=== PATIENT | female | born 1970 | race Caucasian/White ===

== ENCOUNTER → 2017-12-04 | Outpatient (CLI) | payer BC | LOC: HYPER 06:19 | DX: E11.621 Type 2 diabetes mellitus with foot ulcer (principal); L97.521 Non-pressure chronic ulcer of other part of left foot limited to breakdown of skin; L89.893 Pressure ulcer of other site, stage 3; E11.52 Type 2 diabetes mellitus with diabetic peripheral angiopathy with gangrene; I96 Gangrene, not elsewhere classified; E11.69 Type 2 diabetes mellitus with other specified complication; M86.8X8 Other osteomyelitis, other site; D68.51 Activated protein C resistance; F41.9 Anxiety disorder, unspecified; F32.9 Major depressive disorder, single episode, unspecified; Z79.4 Long term (current) use of insulin; Z79.84 Long term (current) use of oral hypoglycemic drugs ==

== ENCOUNTER → 2017-12-18 | Outpatient (CLI) | payer BC | LOC: HYPER 06:34 | DX: E11.621 Type 2 diabetes mellitus with foot ulcer (principal); L97.511 Non-pressure chronic ulcer of other part of right foot limited to breakdown of skin; L89.893 Pressure ulcer of other site, stage 3; E11.52 Type 2 diabetes mellitus with diabetic peripheral angiopathy with gangrene; I96 Gangrene, not elsewhere classified; E11.69 Type 2 diabetes mellitus with other specified complication; M86.8X8 Other osteomyelitis, other site; D68.51 Activated protein C resistance; F41.9 Anxiety disorder, unspecified; F32.9 Major depressive disorder, single episode, unspecified; Z79.4 Long term (current) use of insulin; Z79.84 Long term (current) use of oral hypoglycemic drugs ==

== ENCOUNTER → 2017-12-20 | Outpatient (CLI) | payer BC | LOC: HYPER 08:05 | DX: E11.621 Type 2 diabetes mellitus with foot ulcer (principal); L97.511 Non-pressure chronic ulcer of other part of right foot limited to breakdown of skin; E11.52 Type 2 diabetes mellitus with diabetic peripheral angiopathy with gangrene; I96 Gangrene, not elsewhere classified; E11.69 Type 2 diabetes mellitus with other specified complication; M86.8X8 Other osteomyelitis, other site; D68.51 Activated protein C resistance; J45.909 Unspecified asthma, uncomplicated; F41.9 Anxiety disorder, unspecified; F32.9 Major depressive disorder, single episode, unspecified; Z79.4 Long term (current) use of insulin; Z79.84 Long term (current) use of oral hypoglycemic drugs ==

== ENCOUNTER → 2017-12-23 | Outpatient (CLI) | payer BC | LOC: HYPER 06:49 | DX: E11.621 Type 2 diabetes mellitus with foot ulcer (principal); L97.511 Non-pressure chronic ulcer of other part of right foot limited to breakdown of skin; L84 Corns and callosities; E11.52 Type 2 diabetes mellitus with diabetic peripheral angiopathy with gangrene; I96 Gangrene, not elsewhere classified; E11.69 Type 2 diabetes mellitus with other specified complication; M86.8X8 Other osteomyelitis, other site; D68.51 Activated protein C resistance; J45.909 Unspecified asthma, uncomplicated; F41.9 Anxiety disorder, unspecified; F32.9 Major depressive disorder, single episode, unspecified; Z89.431 Acquired absence of right foot; Z79.4 Long term (current) use of insulin; Z79.84 Long term (current) use of oral hypoglycemic drugs ==

== ENCOUNTER → 2018-01-27 | Outpatient (CLI) | payer BC | LOC: HYPER 07:15 | DX: E11.621 Type 2 diabetes mellitus with foot ulcer (principal); L97.511 Non-pressure chronic ulcer of other part of right foot limited to breakdown of skin; L84 Corns and callosities; E11.52 Type 2 diabetes mellitus with diabetic peripheral angiopathy with gangrene; I96 Gangrene, not elsewhere classified; E11.69 Type 2 diabetes mellitus with other specified complication; M86.8X8 Other osteomyelitis, other site; D68.51 Activated protein C resistance; F41.9 Anxiety disorder, unspecified; F32.9 Major depressive disorder, single episode, unspecified; Z79.4 Long term (current) use of insulin; Z79.84 Long term (current) use of oral hypoglycemic drugs ==

== ENCOUNTER → 2018-02-13 | Outpatient (CLI) | payer BC | LOC: HYPER 07:05 | DX: E11.621 Type 2 diabetes mellitus with foot ulcer (principal); L97.511 Non-pressure chronic ulcer of other part of right foot limited to breakdown of skin; L84 Corns and callosities; E11.52 Type 2 diabetes mellitus with diabetic peripheral angiopathy with gangrene; I96 Gangrene, not elsewhere classified; E11.69 Type 2 diabetes mellitus with other specified complication; M86.8X8 Other osteomyelitis, other site; D68.51 Activated protein C resistance; J45.909 Unspecified asthma, uncomplicated; F41.9 Anxiety disorder, unspecified; F32.9 Major depressive disorder, single episode, unspecified; Z89.421 Acquired absence of other right toe(s); Z79.4 Long term (current) use of insulin; Z79.84 Long term (current) use of oral hypoglycemic drugs ==

== ENCOUNTER → 2018-02-14 | Outpatient (CLI) | payer BC | LOC: MRI 13:32 | DX: L03.115 Cellulitis of right lower limb (principal); M25.474 Effusion, right foot; L02.611 Cutaneous abscess of right foot; R60.0 Localized edema ==

== ENCOUNTER → 2018-03-06 | Outpatient (CLI) | payer BC ==
--- NOTE | 2018-03-07 10:28 | HC ---
[facility] [place] [address] CONSULTATION Name: DARIO PRO Room #: [facility]#: [id number] Admission: 03/06/18 Attend Phys: Ashish Flores MD Discharge: Date of : 66 Report #: [id number] THIS REPORT FOR: //name// CC: Madi Flores DATE OF SERVICE: 03/06/2018 INFECTIOUS DISEASE CONSULTATION ATTENDING PHYSICIANS: Madi Murray MD and Ashish Flores MD. REASON FOR CONSULTATION: Right diabetic foot ulcer with underlying osteomyelitis. HISTORY OF PRESENT ILLNESS: The patient is a 47-year-old white woman with diabetes mellitus for many years with its multiple complications [facility] Dr. Ashish Flores request with ulceration on the right foot of longstanding. The patient is scheduled to have surgical intervention by Dr. Tim Retana this coming Saturday at [facility]. The extent and type of surgery is unclear to the patient and her mother. DRUG ALLERGIES: THERE APPEARS TO BE A HISTORY OF ALLERGY OR INTOLERANCE TO VANCOMYCIN. MEDICATIONS: The patient is currently on treatment with doxycycline 100 mg by mouth twice daily, Renvela 800 mg p.o. t.i.d., Zoloft 50 mg p.o. daily, Actos 15 mg p.o. daily, albuterol inhalation treatments as needed, torsemide p.r.n. PAST MEDICAL HISTORY: Diabetes mellitus with its multiple complications. She had previous surgical interventions to the right foot that ended up requiring a transmetatarsal amputation of the foot and is up lately, the patient is found to have ulceration on the right fifth remainder metatarsal area. MRI of the right foot revealed evidence of osteomyelitis of the residual fifth metatarsal and also some edema of the fourth metatarsal. Soft tissue gas is present as well as a deep ulceration. Culture of the right foot ulcer on 02/13/2018 has revealed presence of Staphylococcus aureus sensitive to vancomycin, Bactrim, tetracycline and on account of these, the patient is on treatment with doxycycline 100 mg p.o. b.i.d. The patient had previous cholecystectomy, right knee surgery, obesity. Her latest hemoglobin A1c is 7.2%. Her last hemoglobin was around 10. Her latest creatinine was 4 and the patient is to be evaluated by vascular surgeon for AV graft placement. The patient is on the kidney transplantation list. SOCIAL HISTORY: See H and P, old records. [address] [address] CONSULTATION Name: DARIO PRO Room #: REG [facility]ade[facility]#: [id number] Admission: 03/06/18 Attend Phys: Ashish Flores MD Discharge: Date of : 66 Report #: [id number] FAMILY HISTORY: See H and P, old records. REVIEW OF SYSTEMS: The patient is said not to be doing very well. She is scheduled to have a stress test at [facility] tomorrow and surgery this coming Saturday. The patient's mother and the patient herself were both advised a clear list of her current medication and possibly drug allergies must be kept at all times in the patient's purse and the patient's mother's possession to be sure with all physicians involved in her care. PHYSICAL EXAMINATION: GENERAL: Chronically ill-appearing, overweight woman. VITAL SIGNS: BP 119/77, temperature 96.8, pulse 93, respirations 18. HEENT: Pupils reactive. Mouth, no thrush. NECK: Supple. BREASTS: Deferred. LUNGS: Clear to auscultation. HEART: S1, S2. No gallop, murmur or rub. ABDOMEN: Obese, soft, no masses or megaly. EXTREMITIES: Status post transmetatarsal amputation of the right foot with large ulceration over the lateral aspect of the transmetatarsal amputated foot. Probing of the wound with gloved fingers failed to reveal exposed bone, but MRI has revealed evidence of osteomyelitis of the remainder right fifth metatarsal. RADIOLOGY EVALUATION: MRI of the right foot reveals transmetatarsal amputation. Ulceration at the lateral margin amputated site, marrow edema and infiltration consistent with osteomyelitis of the remainder fifth metatarsal, gas in the soft tissues. ASSESSMENT: 1. Chronic ulceration, right transmetatarsal foot amputation lateral aspect with underlying osteomyelitis fifth metatarsal. 2. Staphylococcus aureus, oxacillin resistant, right foot ulcer (02/13/2018). 3. Onychomycosis, left foot. 4. Diabetes mellitus, uncontrolled. 5. Chronic kidney disease. 6. Question of VANCOMYCIN ALLERGY. 7. Status post cholecystectomy and tonsillectomy. SUGGESTIONS: Recommend proceed with surgical intervention and possible excision and debridement of fifth metatarsal and if at all possible primary closure. I suspect with history of question vancomycin-induced respiratory problems, cardiac arrest, may consider using Zyvox during surgical intervention along with an anaerobic type antibiotic possibly clindamycin 600 mg IV every 8 hours perioperatively. Depending on surgical findings may recommend oral antibiotics or if so indicated parenteral antibiotics. We will try to make that determination once surgical intervention undertaken. We will obtain cultures of [address] [address] CONSULTATION Name: DARIO PRO Room #: REG KENNA Hanson#: [id number] Admission: 03/06/18 Attend Phys: Ashish Flores MD Discharge: Date of : 66 Report #: [id number] surgical specimen as well. Dr. Ashish Flores and Dr. Murray, thank you for requesting my suggestions in the care of your patient. <ELECTRONICALLY SIGNED> By: Warren Cortes MD 03/07/18 1028 1131 1214 Warren Cortes MD /nt
== END ==
LOC: HYPER 02-19 06:56
DX: E11.621 Type 2 diabetes mellitus with foot ulcer (principal); L97.511 Non-pressure chronic ulcer of other part of right foot limited to breakdown of skin; E11.52 Type 2 diabetes mellitus with diabetic peripheral angiopathy with gangrene; E11.69 Type 2 diabetes mellitus with other specified complication; M86.8X7 Other osteomyelitis, ankle and foot; L84 Corns and callosities; F41.9 Anxiety disorder, unspecified; F32.9 Major depressive disorder, single episode, unspecified; Z79.84 Long term (current) use of oral hypoglycemic drugs; Z79.4 Long term (current) use of insulin

== ENCOUNTER → 2018-03-27 | Outpatient (CLI) | payer BC | LOC: HYPER 07:23 | DX: E11.621 Type 2 diabetes mellitus with foot ulcer (principal); L97.511 Non-pressure chronic ulcer of other part of right foot limited to breakdown of skin; L84 Corns and callosities; E11.52 Type 2 diabetes mellitus with diabetic peripheral angiopathy with gangrene; I96 Gangrene, not elsewhere classified; E11.69 Type 2 diabetes mellitus with other specified complication; M86.8X8 Other osteomyelitis, other site; D68.51 Activated protein C resistance; F41.9 Anxiety disorder, unspecified; F32.9 Major depressive disorder, single episode, unspecified; Z89.431 Acquired absence of right foot; Z79.4 Long term (current) use of insulin; Z79.84 Long term (current) use of oral hypoglycemic drugs ==

== ENCOUNTER → 2018-04-17 | Outpatient (CLI) | payer BC | LOC: HYPER 07:09 | DX: T81.31XD Disruption of external operation (surgical) wound, not elsewhere classified, subsequent encounter (principal); E11.621 Type 2 diabetes mellitus with foot ulcer; L97.511 Non-pressure chronic ulcer of other part of right foot limited to breakdown of skin; L84 Corns and callosities; E11.52 Type 2 diabetes mellitus with diabetic peripheral angiopathy with gangrene; I96 Gangrene, not elsewhere classified; E11.69 Type 2 diabetes mellitus with other specified complication; M86.8X8 Other osteomyelitis, other site; D68.51 Activated protein C resistance; F41.9 Anxiety disorder, unspecified; F32.9 Major depressive disorder, single episode, unspecified; Z79.4 Long term (current) use of insulin; Z79.84 Long term (current) use of oral hypoglycemic drugs; Y83.8 Other surgical procedures as the cause of abnormal reaction of the patient, or of later complication, without mention of misadventure at the time of the procedure ==

== ENCOUNTER → 2018-04-23 | Outpatient (CLI) | payer BC | LOC: HYPER 11:18 | DX: T81.31XD Disruption of external operation (surgical) wound, not elsewhere classified, subsequent encounter (principal); E11.621 Type 2 diabetes mellitus with foot ulcer; L97.511 Non-pressure chronic ulcer of other part of right foot limited to breakdown of skin; E11.52 Type 2 diabetes mellitus with diabetic peripheral angiopathy with gangrene; I96 Gangrene, not elsewhere classified; E11.69 Type 2 diabetes mellitus with other specified complication; M86.8X8 Other osteomyelitis, other site; D68.51 Activated protein C resistance; F41.9 Anxiety disorder, unspecified; F32.9 Major depressive disorder, single episode, unspecified; Z79.4 Long term (current) use of insulin; Z79.84 Long term (current) use of oral hypoglycemic drugs; Y83.8 Other surgical procedures as the cause of abnormal reaction of the patient, or of later complication, without mention of misadventure at the time of the procedure ==

== ENCOUNTER → 2018-05-05 | Outpatient (CLI) | payer BC | LOC: HYPER 06:47 | DX: T81.31XD Disruption of external operation (surgical) wound, not elsewhere classified, subsequent encounter (principal); E11.621 Type 2 diabetes mellitus with foot ulcer; L97.412 Non-pressure chronic ulcer of right heel and midfoot with fat layer exposed; L84 Corns and callosities; E11.52 Type 2 diabetes mellitus with diabetic peripheral angiopathy with gangrene; I96 Gangrene, not elsewhere classified; E11.69 Type 2 diabetes mellitus with other specified complication; M86.8X8 Other osteomyelitis, other site; D68.51 Activated protein C resistance; J45.909 Unspecified asthma, uncomplicated; F41.9 Anxiety disorder, unspecified; F32.9 Major depressive disorder, single episode, unspecified; Z79.4 Long term (current) use of insulin; Z79.84 Long term (current) use of oral hypoglycemic drugs; Y83.8 Other surgical procedures as the cause of abnormal reaction of the patient, or of later complication, without mention of misadventure at the time of the procedure ==

== ENCOUNTER → 2018-05-06 | Outpatient (CLI) | payer BC | LOC: HYPER 07:13 | DX: T81.31XD Disruption of external operation (surgical) wound, not elsewhere classified, subsequent encounter (principal); E11.621 Type 2 diabetes mellitus with foot ulcer; L97.412 Non-pressure chronic ulcer of right heel and midfoot with fat layer exposed; E11.69 Type 2 diabetes mellitus with other specified complication; M86.8X8 Other osteomyelitis, other site; E11.52 Type 2 diabetes mellitus with diabetic peripheral angiopathy with gangrene; I96 Gangrene, not elsewhere classified; D68.51 Activated protein C resistance; F41.9 Anxiety disorder, unspecified; F32.9 Major depressive disorder, single episode, unspecified; Z79.4 Long term (current) use of insulin; Z79.84 Long term (current) use of oral hypoglycemic drugs; Y83.8 Other surgical procedures as the cause of abnormal reaction of the patient, or of later complication, without mention of misadventure at the time of the procedure ==

== ENCOUNTER → 2018-05-07 | Outpatient (CLI) | payer BC | LOC: HYPER 06:50 | DX: T81.31XD Disruption of external operation (surgical) wound, not elsewhere classified, subsequent encounter (principal); E11.621 Type 2 diabetes mellitus with foot ulcer; L97.412 Non-pressure chronic ulcer of right heel and midfoot with fat layer exposed; E11.52 Type 2 diabetes mellitus with diabetic peripheral angiopathy with gangrene; I96 Gangrene, not elsewhere classified; E11.69 Type 2 diabetes mellitus with other specified complication; M86.8X8 Other osteomyelitis, other site; D68.51 Activated protein C resistance; F41.9 Anxiety disorder, unspecified; F32.9 Major depressive disorder, single episode, unspecified; Z79.4 Long term (current) use of insulin; Z79.84 Long term (current) use of oral hypoglycemic drugs; Y83.8 Other surgical procedures as the cause of abnormal reaction of the patient, or of later complication, without mention of misadventure at the time of the procedure ==

== ENCOUNTER → 2018-05-08 | Outpatient (CLI) | payer BC | LOC: HYPER 06:56 | DX: T81.31XD Disruption of external operation (surgical) wound, not elsewhere classified, subsequent encounter (principal); E11.621 Type 2 diabetes mellitus with foot ulcer; L97.412 Non-pressure chronic ulcer of right heel and midfoot with fat layer exposed; E11.52 Type 2 diabetes mellitus with diabetic peripheral angiopathy with gangrene; I96 Gangrene, not elsewhere classified; E11.69 Type 2 diabetes mellitus with other specified complication; M86.8X8 Other osteomyelitis, other site; D68.51 Activated protein C resistance; F41.9 Anxiety disorder, unspecified; F32.9 Major depressive disorder, single episode, unspecified; Z79.4 Long term (current) use of insulin; Z79.84 Long term (current) use of oral hypoglycemic drugs; Y83.8 Other surgical procedures as the cause of abnormal reaction of the patient, or of later complication, without mention of misadventure at the time of the procedure ==

== ENCOUNTER → 2018-05-09 | Outpatient (CLI) | payer BC | LOC: HYPER 08:17 | DX: T81.31XD Disruption of external operation (surgical) wound, not elsewhere classified, subsequent encounter (principal); E11.621 Type 2 diabetes mellitus with foot ulcer; L97.412 Non-pressure chronic ulcer of right heel and midfoot with fat layer exposed; E11.52 Type 2 diabetes mellitus with diabetic peripheral angiopathy with gangrene; I96 Gangrene, not elsewhere classified; E11.69 Type 2 diabetes mellitus with other specified complication; M86.8X8 Other osteomyelitis, other site; D68.51 Activated protein C resistance; F41.9 Anxiety disorder, unspecified; F32.9 Major depressive disorder, single episode, unspecified; Z79.4 Long term (current) use of insulin; Z79.84 Long term (current) use of oral hypoglycemic drugs; Y83.8 Other surgical procedures as the cause of abnormal reaction of the patient, or of later complication, without mention of misadventure at the time of the procedure ==

== ENCOUNTER → 2018-05-12 | Outpatient (CLI) | payer BC | LOC: HYPER 06:35 | DX: T81.31XD Disruption of external operation (surgical) wound, not elsewhere classified, subsequent encounter (principal); E11.621 Type 2 diabetes mellitus with foot ulcer; L97.412 Non-pressure chronic ulcer of right heel and midfoot with fat layer exposed; E11.52 Type 2 diabetes mellitus with diabetic peripheral angiopathy with gangrene; I96 Gangrene, not elsewhere classified; E11.69 Type 2 diabetes mellitus with other specified complication; M86.8X8 Other osteomyelitis, other site; D68.51 Activated protein C resistance; F41.9 Anxiety disorder, unspecified; F32.9 Major depressive disorder, single episode, unspecified; Z79.4 Long term (current) use of insulin; Z79.84 Long term (current) use of oral hypoglycemic drugs; Y83.8 Other surgical procedures as the cause of abnormal reaction of the patient, or of later complication, without mention of misadventure at the time of the procedure ==

== ENCOUNTER → 2018-05-13 | Outpatient (CLI) | payer BC | LOC: HYPER 06:41 | DX: T81.31XD Disruption of external operation (surgical) wound, not elsewhere classified, subsequent encounter (principal); E11.621 Type 2 diabetes mellitus with foot ulcer; L97.412 Non-pressure chronic ulcer of right heel and midfoot with fat layer exposed; E11.52 Type 2 diabetes mellitus with diabetic peripheral angiopathy with gangrene; I96 Gangrene, not elsewhere classified; E11.69 Type 2 diabetes mellitus with other specified complication; M86.8X8 Other osteomyelitis, other site; D68.51 Activated protein C resistance; F41.9 Anxiety disorder, unspecified; F32.9 Major depressive disorder, single episode, unspecified; Z79.4 Long term (current) use of insulin; Z79.84 Long term (current) use of oral hypoglycemic drugs; Y83.8 Other surgical procedures as the cause of abnormal reaction of the patient, or of later complication, without mention of misadventure at the time of the procedure ==

== ENCOUNTER → 2018-05-14 | Outpatient (CLI) | payer BC | LOC: HYPER 06:35 | DX: T81.31XD Disruption of external operation (surgical) wound, not elsewhere classified, subsequent encounter (principal); E11.621 Type 2 diabetes mellitus with foot ulcer; L97.412 Non-pressure chronic ulcer of right heel and midfoot with fat layer exposed; E11.52 Type 2 diabetes mellitus with diabetic peripheral angiopathy with gangrene; I96 Gangrene, not elsewhere classified; E11.69 Type 2 diabetes mellitus with other specified complication; M86.8X8 Other osteomyelitis, other site; D68.51 Activated protein C resistance; F41.9 Anxiety disorder, unspecified; F32.9 Major depressive disorder, single episode, unspecified; Z79.4 Long term (current) use of insulin; Z79.84 Long term (current) use of oral hypoglycemic drugs; Y83.8 Other surgical procedures as the cause of abnormal reaction of the patient, or of later complication, without mention of misadventure at the time of the procedure ==

== ENCOUNTER → 2018-05-15 | Outpatient (CLI) | payer BC | LOC: HYPER 06:56 | DX: T81.31XD Disruption of external operation (surgical) wound, not elsewhere classified, subsequent encounter (principal); E11.621 Type 2 diabetes mellitus with foot ulcer; L97.412 Non-pressure chronic ulcer of right heel and midfoot with fat layer exposed; E11.52 Type 2 diabetes mellitus with diabetic peripheral angiopathy with gangrene; I96 Gangrene, not elsewhere classified; E11.69 Type 2 diabetes mellitus with other specified complication; M86.8X8 Other osteomyelitis, other site; D68.51 Activated protein C resistance; F41.9 Anxiety disorder, unspecified; F32.9 Major depressive disorder, single episode, unspecified; Z79.4 Long term (current) use of insulin; Z79.84 Long term (current) use of oral hypoglycemic drugs; Y83.8 Other surgical procedures as the cause of abnormal reaction of the patient, or of later complication, without mention of misadventure at the time of the procedure ==

== ENCOUNTER → 2018-05-16 | Outpatient (CLI) | payer BC | LOC: HYPER 07:51 | DX: T81.31XD Disruption of external operation (surgical) wound, not elsewhere classified, subsequent encounter (principal); E11.621 Type 2 diabetes mellitus with foot ulcer; L97.412 Non-pressure chronic ulcer of right heel and midfoot with fat layer exposed; E11.52 Type 2 diabetes mellitus with diabetic peripheral angiopathy with gangrene; I96 Gangrene, not elsewhere classified; E11.69 Type 2 diabetes mellitus with other specified complication; M86.8X8 Other osteomyelitis, other site; D68.51 Activated protein C resistance; F41.9 Anxiety disorder, unspecified; F32.9 Major depressive disorder, single episode, unspecified; Z79.4 Long term (current) use of insulin; Z79.84 Long term (current) use of oral hypoglycemic drugs; Y83.8 Other surgical procedures as the cause of abnormal reaction of the patient, or of later complication, without mention of misadventure at the time of the procedure ==

== ENCOUNTER → 2018-05-19 | Outpatient (CLI) | payer BC | LOC: HYPER 07:05 | DX: T81.31XD Disruption of external operation (surgical) wound, not elsewhere classified, subsequent encounter (principal); E11.621 Type 2 diabetes mellitus with foot ulcer; L97.412 Non-pressure chronic ulcer of right heel and midfoot with fat layer exposed; E11.52 Type 2 diabetes mellitus with diabetic peripheral angiopathy with gangrene; I96 Gangrene, not elsewhere classified; E11.69 Type 2 diabetes mellitus with other specified complication; M86.8X8 Other osteomyelitis, other site; D68.51 Activated protein C resistance; F41.9 Anxiety disorder, unspecified; F32.9 Major depressive disorder, single episode, unspecified; Z79.4 Long term (current) use of insulin; Z79.84 Long term (current) use of oral hypoglycemic drugs; Y83.8 Other surgical procedures as the cause of abnormal reaction of the patient, or of later complication, without mention of misadventure at the time of the procedure ==

== ENCOUNTER → 2018-05-20 | Outpatient (CLI) | payer BC | LOC: HYPER 07:13 | DX: T81.31XD Disruption of external operation (surgical) wound, not elsewhere classified, subsequent encounter (principal); E11.621 Type 2 diabetes mellitus with foot ulcer; L97.412 Non-pressure chronic ulcer of right heel and midfoot with fat layer exposed; E11.52 Type 2 diabetes mellitus with diabetic peripheral angiopathy with gangrene; I96 Gangrene, not elsewhere classified; E11.69 Type 2 diabetes mellitus with other specified complication; M86.8X8 Other osteomyelitis, other site; D68.51 Activated protein C resistance; F41.9 Anxiety disorder, unspecified; F32.9 Major depressive disorder, single episode, unspecified; Z79.4 Long term (current) use of insulin; Z79.84 Long term (current) use of oral hypoglycemic drugs; Y83.8 Other surgical procedures as the cause of abnormal reaction of the patient, or of later complication, without mention of misadventure at the time of the procedure ==

== ENCOUNTER → 2018-05-21 | Outpatient (CLI) | payer BC | LOC: HYPER 06:51 | DX: T81.31XD Disruption of external operation (surgical) wound, not elsewhere classified, subsequent encounter (principal); E11.621 Type 2 diabetes mellitus with foot ulcer; L97.412 Non-pressure chronic ulcer of right heel and midfoot with fat layer exposed; E11.52 Type 2 diabetes mellitus with diabetic peripheral angiopathy with gangrene; I96 Gangrene, not elsewhere classified; E11.69 Type 2 diabetes mellitus with other specified complication; M86.8X8 Other osteomyelitis, other site; D68.51 Activated protein C resistance; F41.9 Anxiety disorder, unspecified; F32.9 Major depressive disorder, single episode, unspecified; Z79.4 Long term (current) use of insulin; Z79.84 Long term (current) use of oral hypoglycemic drugs; Y83.8 Other surgical procedures as the cause of abnormal reaction of the patient, or of later complication, without mention of misadventure at the time of the procedure ==

== ENCOUNTER → 2018-05-22 | Outpatient (CLI) | payer BC | LOC: HYPER 06:47 | DX: T81.31XD Disruption of external operation (surgical) wound, not elsewhere classified, subsequent encounter (principal); E11.621 Type 2 diabetes mellitus with foot ulcer; L97.412 Non-pressure chronic ulcer of right heel and midfoot with fat layer exposed; E11.52 Type 2 diabetes mellitus with diabetic peripheral angiopathy with gangrene; I96 Gangrene, not elsewhere classified; E11.69 Type 2 diabetes mellitus with other specified complication; M86.8X8 Other osteomyelitis, other site; D68.51 Activated protein C resistance; F41.9 Anxiety disorder, unspecified; F32.9 Major depressive disorder, single episode, unspecified; Z79.4 Long term (current) use of insulin; Z79.84 Long term (current) use of oral hypoglycemic drugs; Y83.8 Other surgical procedures as the cause of abnormal reaction of the patient, or of later complication, without mention of misadventure at the time of the procedure ==

== ENCOUNTER → 2018-05-23 | Outpatient (CLI) | payer BC | LOC: HYPER 08:10 | DX: T81.31XD Disruption of external operation (surgical) wound, not elsewhere classified, subsequent encounter (principal); E11.621 Type 2 diabetes mellitus with foot ulcer; L97.412 Non-pressure chronic ulcer of right heel and midfoot with fat layer exposed; E11.52 Type 2 diabetes mellitus with diabetic peripheral angiopathy with gangrene; I96 Gangrene, not elsewhere classified; E11.69 Type 2 diabetes mellitus with other specified complication; M86.8X8 Other osteomyelitis, other site; D68.51 Activated protein C resistance; F41.9 Anxiety disorder, unspecified; F32.9 Major depressive disorder, single episode, unspecified; Z79.4 Long term (current) use of insulin; Z79.84 Long term (current) use of oral hypoglycemic drugs; Y83.8 Other surgical procedures as the cause of abnormal reaction of the patient, or of later complication, without mention of misadventure at the time of the procedure ==

== ENCOUNTER → 2018-05-26 | Outpatient (CLI) | payer BC | LOC: HYPER 06:46 | DX: T81.31XD Disruption of external operation (surgical) wound, not elsewhere classified, subsequent encounter (principal); E11.621 Type 2 diabetes mellitus with foot ulcer; L97.412 Non-pressure chronic ulcer of right heel and midfoot with fat layer exposed; E11.52 Type 2 diabetes mellitus with diabetic peripheral angiopathy with gangrene; I96 Gangrene, not elsewhere classified; E11.69 Type 2 diabetes mellitus with other specified complication; M86.8X8 Other osteomyelitis, other site; D68.51 Activated protein C resistance; F41.9 Anxiety disorder, unspecified; F32.9 Major depressive disorder, single episode, unspecified; Z79.4 Long term (current) use of insulin; Z79.84 Long term (current) use of oral hypoglycemic drugs; Y83.8 Other surgical procedures as the cause of abnormal reaction of the patient, or of later complication, without mention of misadventure at the time of the procedure ==

== ENCOUNTER → 2018-05-27 | Outpatient (CLI) | payer BC | LOC: HYPER 07:47 | DX: T81.31XD Disruption of external operation (surgical) wound, not elsewhere classified, subsequent encounter (principal); E11.621 Type 2 diabetes mellitus with foot ulcer; L97.412 Non-pressure chronic ulcer of right heel and midfoot with fat layer exposed; E11.52 Type 2 diabetes mellitus with diabetic peripheral angiopathy with gangrene; I96 Gangrene, not elsewhere classified; E11.69 Type 2 diabetes mellitus with other specified complication; M86.8X8 Other osteomyelitis, other site; D68.51 Activated protein C resistance; F41.9 Anxiety disorder, unspecified; F32.9 Major depressive disorder, single episode, unspecified; Z79.4 Long term (current) use of insulin; Z79.84 Long term (current) use of oral hypoglycemic drugs; Y83.8 Other surgical procedures as the cause of abnormal reaction of the patient, or of later complication, without mention of misadventure at the time of the procedure ==

== ENCOUNTER → 2018-05-28 | Outpatient (CLI) | payer BC | LOC: HYPER 06:39 | DX: T81.31XD Disruption of external operation (surgical) wound, not elsewhere classified, subsequent encounter (principal); E11.621 Type 2 diabetes mellitus with foot ulcer; L97.412 Non-pressure chronic ulcer of right heel and midfoot with fat layer exposed; E11.52 Type 2 diabetes mellitus with diabetic peripheral angiopathy with gangrene; I96 Gangrene, not elsewhere classified; E11.69 Type 2 diabetes mellitus with other specified complication; M86.8X8 Other osteomyelitis, other site; D68.51 Activated protein C resistance; F41.9 Anxiety disorder, unspecified; F32.9 Major depressive disorder, single episode, unspecified; Z79.4 Long term (current) use of insulin; Z79.84 Long term (current) use of oral hypoglycemic drugs; Y83.8 Other surgical procedures as the cause of abnormal reaction of the patient, or of later complication, without mention of misadventure at the time of the procedure ==

== ENCOUNTER → 2018-05-29 | Outpatient (CLI) | payer BC | LOC: HYPER 07:01 | DX: T81.31XD Disruption of external operation (surgical) wound, not elsewhere classified, subsequent encounter (principal); E11.621 Type 2 diabetes mellitus with foot ulcer; L97.412 Non-pressure chronic ulcer of right heel and midfoot with fat layer exposed; E11.52 Type 2 diabetes mellitus with diabetic peripheral angiopathy with gangrene; I96 Gangrene, not elsewhere classified; E11.69 Type 2 diabetes mellitus with other specified complication; M86.8X8 Other osteomyelitis, other site; D68.51 Activated protein C resistance; F41.9 Anxiety disorder, unspecified; F32.9 Major depressive disorder, single episode, unspecified; Z79.4 Long term (current) use of insulin; Z79.84 Long term (current) use of oral hypoglycemic drugs; Y83.8 Other surgical procedures as the cause of abnormal reaction of the patient, or of later complication, without mention of misadventure at the time of the procedure ==

== ENCOUNTER → 2018-06-02 | Outpatient (CLI) | payer BC | LOC: HYPER 06:52 | DX: T81.31XD Disruption of external operation (surgical) wound, not elsewhere classified, subsequent encounter (principal); E11.621 Type 2 diabetes mellitus with foot ulcer; L97.412 Non-pressure chronic ulcer of right heel and midfoot with fat layer exposed; E11.52 Type 2 diabetes mellitus with diabetic peripheral angiopathy with gangrene; I96 Gangrene, not elsewhere classified; E11.69 Type 2 diabetes mellitus with other specified complication; M86.8X8 Other osteomyelitis, other site; D68.51 Activated protein C resistance; F41.9 Anxiety disorder, unspecified; F32.9 Major depressive disorder, single episode, unspecified; Z79.4 Long term (current) use of insulin; Z79.84 Long term (current) use of oral hypoglycemic drugs; Y83.8 Other surgical procedures as the cause of abnormal reaction of the patient, or of later complication, without mention of misadventure at the time of the procedure ==

== ENCOUNTER → 2018-06-04 | Outpatient (CLI) | payer BC | LOC: HYPER 06-03 07:20 | DX: T81.31XD Disruption of external operation (surgical) wound, not elsewhere classified, subsequent encounter (principal); E11.621 Type 2 diabetes mellitus with foot ulcer; L97.412 Non-pressure chronic ulcer of right heel and midfoot with fat layer exposed; E11.52 Type 2 diabetes mellitus with diabetic peripheral angiopathy with gangrene; I96 Gangrene, not elsewhere classified; E11.69 Type 2 diabetes mellitus with other specified complication; M86.8X8 Other osteomyelitis, other site; D68.51 Activated protein C resistance; F41.9 Anxiety disorder, unspecified; F32.9 Major depressive disorder, single episode, unspecified; Z79.4 Long term (current) use of insulin; Z79.84 Long term (current) use of oral hypoglycemic drugs; Y83.8 Other surgical procedures as the cause of abnormal reaction of the patient, or of later complication, without mention of misadventure at the time of the procedure ==

== ENCOUNTER → 2018-06-05 | Outpatient (CLI) | payer BC | LOC: HYPER 06:35 | DX: T81.31XD Disruption of external operation (surgical) wound, not elsewhere classified, subsequent encounter (principal); E11.621 Type 2 diabetes mellitus with foot ulcer; L97.412 Non-pressure chronic ulcer of right heel and midfoot with fat layer exposed; E11.52 Type 2 diabetes mellitus with diabetic peripheral angiopathy with gangrene; I96 Gangrene, not elsewhere classified; E11.69 Type 2 diabetes mellitus with other specified complication; M86.8X8 Other osteomyelitis, other site; D68.51 Activated protein C resistance; F32.9 Major depressive disorder, single episode, unspecified; F41.9 Anxiety disorder, unspecified; Z79.4 Long term (current) use of insulin; Z79.84 Long term (current) use of oral hypoglycemic drugs; Y83.8 Other surgical procedures as the cause of abnormal reaction of the patient, or of later complication, without mention of misadventure at the time of the procedure ==

== ENCOUNTER → 2018-06-09 | Outpatient (CLI) | payer BC | LOC: HYPER 06:46 | DX: T81.31XD Disruption of external operation (surgical) wound, not elsewhere classified, subsequent encounter (principal); E11.621 Type 2 diabetes mellitus with foot ulcer; L97.412 Non-pressure chronic ulcer of right heel and midfoot with fat layer exposed; E11.69 Type 2 diabetes mellitus with other specified complication; M86.8X8 Other osteomyelitis, other site; F41.9 Anxiety disorder, unspecified; F32.9 Major depressive disorder, single episode, unspecified; Z79.4 Long term (current) use of insulin; Z79.84 Long term (current) use of oral hypoglycemic drugs; Y83.8 Other surgical procedures as the cause of abnormal reaction of the patient, or of later complication, without mention of misadventure at the time of the procedure ==

== ENCOUNTER → 2018-06-10 | Outpatient (CLI) | payer BC | LOC: HYPER 06:55 | DX: T81.31XD Disruption of external operation (surgical) wound, not elsewhere classified, subsequent encounter (principal); E11.621 Type 2 diabetes mellitus with foot ulcer; L97.412 Non-pressure chronic ulcer of right heel and midfoot with fat layer exposed; E11.52 Type 2 diabetes mellitus with diabetic peripheral angiopathy with gangrene; I96 Gangrene, not elsewhere classified; E11.69 Type 2 diabetes mellitus with other specified complication; M86.8X8 Other osteomyelitis, other site; F41.9 Anxiety disorder, unspecified; F32.9 Major depressive disorder, single episode, unspecified; Z79.4 Long term (current) use of insulin; Z79.84 Long term (current) use of oral hypoglycemic drugs; Y83.8 Other surgical procedures as the cause of abnormal reaction of the patient, or of later complication, without mention of misadventure at the time of the procedure ==

== ENCOUNTER → 2018-06-11 | Outpatient (CLI) | payer BC | LOC: HYPER 06:56 | DX: T81.31XD Disruption of external operation (surgical) wound, not elsewhere classified, subsequent encounter (principal); E11.621 Type 2 diabetes mellitus with foot ulcer; L97.412 Non-pressure chronic ulcer of right heel and midfoot with fat layer exposed; E11.52 Type 2 diabetes mellitus with diabetic peripheral angiopathy with gangrene; I96 Gangrene, not elsewhere classified; E11.69 Type 2 diabetes mellitus with other specified complication; M86.8X8 Other osteomyelitis, other site; D68.51 Activated protein C resistance; F41.9 Anxiety disorder, unspecified; F32.9 Major depressive disorder, single episode, unspecified; Z79.4 Long term (current) use of insulin; Z79.84 Long term (current) use of oral hypoglycemic drugs; Y83.8 Other surgical procedures as the cause of abnormal reaction of the patient, or of later complication, without mention of misadventure at the time of the procedure ==

== ENCOUNTER → 2018-06-12 | Outpatient (CLI) | payer BC | LOC: HYPER 06:46 | DX: T81.31XD Disruption of external operation (surgical) wound, not elsewhere classified, subsequent encounter (principal); E11.621 Type 2 diabetes mellitus with foot ulcer; L97.412 Non-pressure chronic ulcer of right heel and midfoot with fat layer exposed; E11.52 Type 2 diabetes mellitus with diabetic peripheral angiopathy with gangrene; I96 Gangrene, not elsewhere classified; E11.69 Type 2 diabetes mellitus with other specified complication; M86.8X8 Other osteomyelitis, other site; D68.51 Activated protein C resistance; F41.9 Anxiety disorder, unspecified; F32.9 Major depressive disorder, single episode, unspecified; Z79.4 Long term (current) use of insulin; Z79.84 Long term (current) use of oral hypoglycemic drugs; Y83.8 Other surgical procedures as the cause of abnormal reaction of the patient, or of later complication, without mention of misadventure at the time of the procedure ==

== ENCOUNTER → 2018-06-13 | Outpatient (CLI) | payer BC | LOC: HYPER 06:45 | DX: T81.31XD Disruption of external operation (surgical) wound, not elsewhere classified, subsequent encounter (principal); E11.621 Type 2 diabetes mellitus with foot ulcer; L97.412 Non-pressure chronic ulcer of right heel and midfoot with fat layer exposed; E11.52 Type 2 diabetes mellitus with diabetic peripheral angiopathy with gangrene; I96 Gangrene, not elsewhere classified; E11.69 Type 2 diabetes mellitus with other specified complication; M86.8X8 Other osteomyelitis, other site; D68.51 Activated protein C resistance; F41.9 Anxiety disorder, unspecified; F32.9 Major depressive disorder, single episode, unspecified; Z79.4 Long term (current) use of insulin; Z79.84 Long term (current) use of oral hypoglycemic drugs; Y83.8 Other surgical procedures as the cause of abnormal reaction of the patient, or of later complication, without mention of misadventure at the time of the procedure ==

== ENCOUNTER → 2018-06-16 | Outpatient (CLI) | payer BC | LOC: HYPER 06-06 14:58 | DX: T81.31XD Disruption of external operation (surgical) wound, not elsewhere classified, subsequent encounter (principal); E11.621 Type 2 diabetes mellitus with foot ulcer; L97.412 Non-pressure chronic ulcer of right heel and midfoot with fat layer exposed; E11.52 Type 2 diabetes mellitus with diabetic peripheral angiopathy with gangrene; I96 Gangrene, not elsewhere classified; E11.69 Type 2 diabetes mellitus with other specified complication; M86.8X8 Other osteomyelitis, other site; D68.51 Activated protein C resistance; F41.9 Anxiety disorder, unspecified; F32.9 Major depressive disorder, single episode, unspecified; Z79.4 Long term (current) use of insulin; Z79.84 Long term (current) use of oral hypoglycemic drugs ==

== ENCOUNTER → 2018-06-17 | Outpatient (CLI) | payer BC | LOC: HYPER 06:54 | DX: T81.31XD Disruption of external operation (surgical) wound, not elsewhere classified, subsequent encounter (principal); E11.621 Type 2 diabetes mellitus with foot ulcer; L97.412 Non-pressure chronic ulcer of right heel and midfoot with fat layer exposed; E11.52 Type 2 diabetes mellitus with diabetic peripheral angiopathy with gangrene; I96 Gangrene, not elsewhere classified; E11.69 Type 2 diabetes mellitus with other specified complication; M86.8X8 Other osteomyelitis, other site; D68.51 Activated protein C resistance; F41.9 Anxiety disorder, unspecified; F32.9 Major depressive disorder, single episode, unspecified; Z79.4 Long term (current) use of insulin; Z79.84 Long term (current) use of oral hypoglycemic drugs; Y83.8 Other surgical procedures as the cause of abnormal reaction of the patient, or of later complication, without mention of misadventure at the time of the procedure ==

== ENCOUNTER → 2018-06-18 | Outpatient (CLI) | payer BC | LOC: HYPER 06:34 | DX: T81.31XD Disruption of external operation (surgical) wound, not elsewhere classified, subsequent encounter (principal); E11.621 Type 2 diabetes mellitus with foot ulcer; L97.412 Non-pressure chronic ulcer of right heel and midfoot with fat layer exposed; E11.52 Type 2 diabetes mellitus with diabetic peripheral angiopathy with gangrene; I96 Gangrene, not elsewhere classified; E11.69 Type 2 diabetes mellitus with other specified complication; M86.8X8 Other osteomyelitis, other site; D68.51 Activated protein C resistance; F41.9 Anxiety disorder, unspecified; F32.9 Major depressive disorder, single episode, unspecified; Z79.4 Long term (current) use of insulin; Z79.84 Long term (current) use of oral hypoglycemic drugs; Y83.8 Other surgical procedures as the cause of abnormal reaction of the patient, or of later complication, without mention of misadventure at the time of the procedure ==

== ENCOUNTER → 2018-06-19 | Outpatient (CLI) | payer BC | LOC: HYPER 07:02 | DX: T87.81 Dehiscence of amputation stump (principal); E11.621 Type 2 diabetes mellitus with foot ulcer; L97.412 Non-pressure chronic ulcer of right heel and midfoot with fat layer exposed; E11.52 Type 2 diabetes mellitus with diabetic peripheral angiopathy with gangrene; I96 Gangrene, not elsewhere classified; E11.69 Type 2 diabetes mellitus with other specified complication; M86.8X8 Other osteomyelitis, other site; L84 Corns and callosities; D68.51 Activated protein C resistance; F41.9 Anxiety disorder, unspecified; F32.9 Major depressive disorder, single episode, unspecified; Z79.4 Long term (current) use of insulin; Z79.84 Long term (current) use of oral hypoglycemic drugs; Y83.5 Amputation of limb(s) as the cause of abnormal reaction of the patient, or of later complication, without mention of misadventure at the time of the procedure ==

== ENCOUNTER → 2018-06-26 | Outpatient (CLI) | payer BC | LOC: HYPER 06:57 | DX: T87.89 Other complications of amputation stump (principal); E11.621 Type 2 diabetes mellitus with foot ulcer; L97.412 Non-pressure chronic ulcer of right heel and midfoot with fat layer exposed; L84 Corns and callosities; E11.52 Type 2 diabetes mellitus with diabetic peripheral angiopathy with gangrene; I96 Gangrene, not elsewhere classified; D68.51 Activated protein C resistance; F41.9 Anxiety disorder, unspecified; F32.9 Major depressive disorder, single episode, unspecified; Z79.4 Long term (current) use of insulin; Z79.84 Long term (current) use of oral hypoglycemic drugs; Y83.5 Amputation of limb(s) as the cause of abnormal reaction of the patient, or of later complication, without mention of misadventure at the time of the procedure ==

== ENCOUNTER → 2018-07-02 | Outpatient (CLI) | payer BC | LOC: HYPER 06:51 | DX: T81.31XD Disruption of external operation (surgical) wound, not elsewhere classified, subsequent encounter (principal); E11.621 Type 2 diabetes mellitus with foot ulcer; L97.412 Non-pressure chronic ulcer of right heel and midfoot with fat layer exposed; E11.52 Type 2 diabetes mellitus with diabetic peripheral angiopathy with gangrene; I96 Gangrene, not elsewhere classified; D68.51 Activated protein C resistance; E11.69 Type 2 diabetes mellitus with other specified complication; M86.8X8 Other osteomyelitis, other site; L84 Corns and callosities; F41.9 Anxiety disorder, unspecified; F32.9 Major depressive disorder, single episode, unspecified; Z79.4 Long term (current) use of insulin; Z79.84 Long term (current) use of oral hypoglycemic drugs; Y83.8 Other surgical procedures as the cause of abnormal reaction of the patient, or of later complication, without mention of misadventure at the time of the procedure ==

== ENCOUNTER → 2018-07-17 | Outpatient (CLI) | payer BC | LOC: HYPER 07-10 06:44 | DX: T81.31XD Disruption of external operation (surgical) wound, not elsewhere classified, subsequent encounter (principal); E11.621 Type 2 diabetes mellitus with foot ulcer; L97.412 Non-pressure chronic ulcer of right heel and midfoot with fat layer exposed; E11.52 Type 2 diabetes mellitus with diabetic peripheral angiopathy with gangrene; E11.69 Type 2 diabetes mellitus with other specified complication; M86.8X8 Other osteomyelitis, other site; L84 Corns and callosities; F41.9 Anxiety disorder, unspecified; F32.9 Major depressive disorder, single episode, unspecified; Z79.4 Long term (current) use of insulin; Z79.84 Long term (current) use of oral hypoglycemic drugs; Y83.8 Other surgical procedures as the cause of abnormal reaction of the patient, or of later complication, without mention of misadventure at the time of the procedure ==

== ENCOUNTER → 2018-07-24 | Outpatient (CLI) | payer BC | LOC: HYPER 06:45 | DX: T81.31XD Disruption of external operation (surgical) wound, not elsewhere classified, subsequent encounter (principal); E11.621 Type 2 diabetes mellitus with foot ulcer; L97.412 Non-pressure chronic ulcer of right heel and midfoot with fat layer exposed; E11.52 Type 2 diabetes mellitus with diabetic peripheral angiopathy with gangrene; E11.69 Type 2 diabetes mellitus with other specified complication; M86.8X8 Other osteomyelitis, other site; L84 Corns and callosities; F41.9 Anxiety disorder, unspecified; F32.9 Major depressive disorder, single episode, unspecified; Z79.4 Long term (current) use of insulin; Z79.84 Long term (current) use of oral hypoglycemic drugs; Y83.8 Other surgical procedures as the cause of abnormal reaction of the patient, or of later complication, without mention of misadventure at the time of the procedure ==

== ENCOUNTER → 2018-07-31 | Outpatient (CLI) | payer BC | LOC: HYPER 06:49 | DX: T81.31XD Disruption of external operation (surgical) wound, not elsewhere classified, subsequent encounter (principal); E11.621 Type 2 diabetes mellitus with foot ulcer; L97.412 Non-pressure chronic ulcer of right heel and midfoot with fat layer exposed; E11.52 Type 2 diabetes mellitus with diabetic peripheral angiopathy with gangrene; E11.69 Type 2 diabetes mellitus with other specified complication; M86.8X8 Other osteomyelitis, other site; L84 Corns and callosities; F41.9 Anxiety disorder, unspecified; F32.9 Major depressive disorder, single episode, unspecified; Z79.4 Long term (current) use of insulin; Z79.84 Long term (current) use of oral hypoglycemic drugs; Y83.8 Other surgical procedures as the cause of abnormal reaction of the patient, or of later complication, without mention of misadventure at the time of the procedure ==

== ENCOUNTER → 2018-08-14 | Outpatient (CLI) | payer BC | LOC: HYPER 06:42 | DX: T81.31XD Disruption of external operation (surgical) wound, not elsewhere classified, subsequent encounter (principal); E11.621 Type 2 diabetes mellitus with foot ulcer; L97.412 Non-pressure chronic ulcer of right heel and midfoot with fat layer exposed; L84 Corns and callosities; E11.52 Type 2 diabetes mellitus with diabetic peripheral angiopathy with gangrene; I96 Gangrene, not elsewhere classified; E11.69 Type 2 diabetes mellitus with other specified complication; M86.8X8 Other osteomyelitis, other site; D68.51 Activated protein C resistance; J45.909 Unspecified asthma, uncomplicated; F41.9 Anxiety disorder, unspecified; F32.9 Major depressive disorder, single episode, unspecified; Z79.4 Long term (current) use of insulin; Z79.84 Long term (current) use of oral hypoglycemic drugs; Y83.8 Other surgical procedures as the cause of abnormal reaction of the patient, or of later complication, without mention of misadventure at the time of the procedure ==

== ENCOUNTER → 2018-08-25 | Outpatient (CLI) | payer BC | LOC: HYPER 08-07 12:18 | DX: T81.31XD Disruption of external operation (surgical) wound, not elsewhere classified, subsequent encounter (principal); E11.621 Type 2 diabetes mellitus with foot ulcer; L97.416 Non-pressure chronic ulcer of right heel and midfoot with bone involvement without evidence of necrosis; L84 Corns and callosities; E11.69 Type 2 diabetes mellitus with other specified complication; M86.8X8 Other osteomyelitis, other site; E11.52 Type 2 diabetes mellitus with diabetic peripheral angiopathy with gangrene; I96 Gangrene, not elsewhere classified; D68.51 Activated protein C resistance; F41.9 Anxiety disorder, unspecified; F32.9 Major depressive disorder, single episode, unspecified; Z79.4 Long term (current) use of insulin; Z79.84 Long term (current) use of oral hypoglycemic drugs; Y83.8 Other surgical procedures as the cause of abnormal reaction of the patient, or of later complication, without mention of misadventure at the time of the procedure ==

== ENCOUNTER → 2018-09-08 | Outpatient (CLI) | payer BC | LOC: HYPER 06:34 | DX: T81.31XD Disruption of external operation (surgical) wound, not elsewhere classified, subsequent encounter (principal); E11.621 Type 2 diabetes mellitus with foot ulcer; L97.412 Non-pressure chronic ulcer of right heel and midfoot with fat layer exposed; E11.52 Type 2 diabetes mellitus with diabetic peripheral angiopathy with gangrene; E11.69 Type 2 diabetes mellitus with other specified complication; M86.8X7 Other osteomyelitis, ankle and foot; L84 Corns and callosities; F41.9 Anxiety disorder, unspecified; F32.9 Major depressive disorder, single episode, unspecified; Z79.4 Long term (current) use of insulin; Z79.84 Long term (current) use of oral hypoglycemic drugs; Y83.8 Other surgical procedures as the cause of abnormal reaction of the patient, or of later complication, without mention of misadventure at the time of the procedure ==

== ENCOUNTER → 2018-09-22 | Outpatient (CLI) | payer BC | LOC: HYPER 07:34 | DX: T81.31XD Disruption of external operation (surgical) wound, not elsewhere classified, subsequent encounter (principal); E11.621 Type 2 diabetes mellitus with foot ulcer; L97.416 Non-pressure chronic ulcer of right heel and midfoot with bone involvement without evidence of necrosis; L84 Corns and callosities; E11.52 Type 2 diabetes mellitus with diabetic peripheral angiopathy with gangrene; I96 Gangrene, not elsewhere classified; E11.69 Type 2 diabetes mellitus with other specified complication; M86.8X8 Other osteomyelitis, other site; D68.51 Activated protein C resistance; F41.9 Anxiety disorder, unspecified; F32.9 Major depressive disorder, single episode, unspecified; Z79.4 Long term (current) use of insulin; Z79.84 Long term (current) use of oral hypoglycemic drugs; Y83.8 Other surgical procedures as the cause of abnormal reaction of the patient, or of later complication, without mention of misadventure at the time of the procedure ==

== ENCOUNTER → 2018-10-06 | Outpatient (CLI) | payer BC | LOC: HYPER 06:58 | DX: T81.31XD Disruption of external operation (surgical) wound, not elsewhere classified, subsequent encounter (principal); E11.621 Type 2 diabetes mellitus with foot ulcer; L97.416 Non-pressure chronic ulcer of right heel and midfoot with bone involvement without evidence of necrosis; L84 Corns and callosities; E11.69 Type 2 diabetes mellitus with other specified complication; M86.8X8 Other osteomyelitis, other site; E11.52 Type 2 diabetes mellitus with diabetic peripheral angiopathy with gangrene; I96 Gangrene, not elsewhere classified; D68.51 Activated protein C resistance; J45.909 Unspecified asthma, uncomplicated; F41.9 Anxiety disorder, unspecified; F32.9 Major depressive disorder, single episode, unspecified; Z79.4 Long term (current) use of insulin; Z79.84 Long term (current) use of oral hypoglycemic drugs; Y83.8 Other surgical procedures as the cause of abnormal reaction of the patient, or of later complication, without mention of misadventure at the time of the procedure ==

== ENCOUNTER → 2018-10-20 | Outpatient (CLI) | payer BC | LOC: HYPER 06:44 | DX: T81.31XD Disruption of external operation (surgical) wound, not elsewhere classified, subsequent encounter (principal); E11.621 Type 2 diabetes mellitus with foot ulcer; L97.416 Non-pressure chronic ulcer of right heel and midfoot with bone involvement without evidence of necrosis; L84 Corns and callosities; E11.52 Type 2 diabetes mellitus with diabetic peripheral angiopathy with gangrene; I96 Gangrene, not elsewhere classified; E11.69 Type 2 diabetes mellitus with other specified complication; M86.8X8 Other osteomyelitis, other site; D68.51 Activated protein C resistance; F41.9 Anxiety disorder, unspecified; F32.9 Major depressive disorder, single episode, unspecified; Z79.4 Long term (current) use of insulin; Z79.84 Long term (current) use of oral hypoglycemic drugs; Y83.8 Other surgical procedures as the cause of abnormal reaction of the patient, or of later complication, without mention of misadventure at the time of the procedure ==

== ENCOUNTER → 2018-11-03 | Outpatient (CLI) | payer BC | LOC: HYPER 06:58 | DX: T81.31XD Disruption of external operation (surgical) wound, not elsewhere classified, subsequent encounter (principal); E11.621 Type 2 diabetes mellitus with foot ulcer; L97.412 Non-pressure chronic ulcer of right heel and midfoot with fat layer exposed; E11.52 Type 2 diabetes mellitus with diabetic peripheral angiopathy with gangrene; E11.69 Type 2 diabetes mellitus with other specified complication; M86.8X7 Other osteomyelitis, ankle and foot; L84 Corns and callosities; F41.9 Anxiety disorder, unspecified; F32.9 Major depressive disorder, single episode, unspecified; Z79.4 Long term (current) use of insulin; Z79.84 Long term (current) use of oral hypoglycemic drugs; Y83.8 Other surgical procedures as the cause of abnormal reaction of the patient, or of later complication, without mention of misadventure at the time of the procedure ==

== ENCOUNTER → 2018-11-17 | Outpatient (CLI) | payer BC | LOC: HYPER 07:05 | DX: T81.31XD Disruption of external operation (surgical) wound, not elsewhere classified, subsequent encounter (principal); E11.621 Type 2 diabetes mellitus with foot ulcer; L97.412 Non-pressure chronic ulcer of right heel and midfoot with fat layer exposed; E11.52 Type 2 diabetes mellitus with diabetic peripheral angiopathy with gangrene; L84 Corns and callosities; E11.69 Type 2 diabetes mellitus with other specified complication; M86.8X8 Other osteomyelitis, other site; F41.9 Anxiety disorder, unspecified; F32.9 Major depressive disorder, single episode, unspecified; Z79.4 Long term (current) use of insulin; Z79.84 Long term (current) use of oral hypoglycemic drugs; Y83.8 Other surgical procedures as the cause of abnormal reaction of the patient, or of later complication, without mention of misadventure at the time of the procedure ==

== ENCOUNTER → 2018-12-01 | Outpatient (CLI) | payer BC | LOC: HYPER 07:33 | DX: T81.31XD Disruption of external operation (surgical) wound, not elsewhere classified, subsequent encounter (principal); E11.621 Type 2 diabetes mellitus with foot ulcer; L97.412 Non-pressure chronic ulcer of right heel and midfoot with fat layer exposed; E11.52 Type 2 diabetes mellitus with diabetic peripheral angiopathy with gangrene; E11.69 Type 2 diabetes mellitus with other specified complication; M86.8X8 Other osteomyelitis, other site; L84 Corns and callosities; F41.9 Anxiety disorder, unspecified; F32.9 Major depressive disorder, single episode, unspecified; Z79.4 Long term (current) use of insulin; Z79.84 Long term (current) use of oral hypoglycemic drugs; Y83.8 Other surgical procedures as the cause of abnormal reaction of the patient, or of later complication, without mention of misadventure at the time of the procedure ==

== ENCOUNTER → 2018-12-15 | Outpatient (CLI) | payer BC | LOC: HYPER 07:55 | DX: T81.31XD Disruption of external operation (surgical) wound, not elsewhere classified, subsequent encounter (principal); E11.621 Type 2 diabetes mellitus with foot ulcer; L97.412 Non-pressure chronic ulcer of right heel and midfoot with fat layer exposed; L97.511 Non-pressure chronic ulcer of other part of right foot limited to breakdown of skin; S90.821D Blister (nonthermal), right foot, subsequent encounter; L84 Corns and callosities; E11.52 Type 2 diabetes mellitus with diabetic peripheral angiopathy with gangrene; I96 Gangrene, not elsewhere classified; E11.69 Type 2 diabetes mellitus with other specified complication; M86.8X8 Other osteomyelitis, other site; D68.51 Activated protein C resistance; F41.9 Anxiety disorder, unspecified; F32.9 Major depressive disorder, single episode, unspecified; Z79.4 Long term (current) use of insulin; Z79.84 Long term (current) use of oral hypoglycemic drugs; X58.XXXD Exposure to other specified factors, subsequent encounter; Y83.8 Other surgical procedures as the cause of abnormal reaction of the patient, or of later complication, without mention of misadventure at the time of the procedure ==

== ENCOUNTER → 2018-12-22 | Outpatient (CLI) | payer BC | LOC: HYPER 11:41 | DX: T81.31XD Disruption of external operation (surgical) wound, not elsewhere classified, subsequent encounter (principal); E11.621 Type 2 diabetes mellitus with foot ulcer; L97.412 Non-pressure chronic ulcer of right heel and midfoot with fat layer exposed; L97.511 Non-pressure chronic ulcer of other part of right foot limited to breakdown of skin; S90.812D Abrasion, left foot, subsequent encounter; L84 Corns and callosities; E11.52 Type 2 diabetes mellitus with diabetic peripheral angiopathy with gangrene; I96 Gangrene, not elsewhere classified; E11.69 Type 2 diabetes mellitus with other specified complication; M86.8X8 Other osteomyelitis, other site; D68.51 Activated protein C resistance; F41.9 Anxiety disorder, unspecified; F32.9 Major depressive disorder, single episode, unspecified; Z79.4 Long term (current) use of insulin; Z79.84 Long term (current) use of oral hypoglycemic drugs; X58.XXXD Exposure to other specified factors, subsequent encounter; Y83.8 Other surgical procedures as the cause of abnormal reaction of the patient, or of later complication, without mention of misadventure at the time of the procedure ==

== ENCOUNTER → 2019-01-05 | Outpatient (CLI) | payer BC | LOC: HYPER 09:06 | DX: T81.31XD Disruption of external operation (surgical) wound, not elsewhere classified, subsequent encounter (principal); E11.621 Type 2 diabetes mellitus with foot ulcer; L97.416 Non-pressure chronic ulcer of right heel and midfoot with bone involvement without evidence of necrosis; L97.511 Non-pressure chronic ulcer of other part of right foot limited to breakdown of skin; S90.821D Blister (nonthermal), right foot, subsequent encounter; L84 Corns and callosities; E11.52 Type 2 diabetes mellitus with diabetic peripheral angiopathy with gangrene; I96 Gangrene, not elsewhere classified; E11.69 Type 2 diabetes mellitus with other specified complication; M86.8X8 Other osteomyelitis, other site; D68.51 Activated protein C resistance; J45.909 Unspecified asthma, uncomplicated; F41.9 Anxiety disorder, unspecified; F32.9 Major depressive disorder, single episode, unspecified; Z79.4 Long term (current) use of insulin; Z79.84 Long term (current) use of oral hypoglycemic drugs; X58.XXXD Exposure to other specified factors, subsequent encounter; Y83.8 Other surgical procedures as the cause of abnormal reaction of the patient, or of later complication, without mention of misadventure at the time of the procedure ==

== ENCOUNTER → 2019-01-09 | Outpatient (CLI) | payer BC | LOC: MRI 07:33 | DX: E11.621 Type 2 diabetes mellitus with foot ulcer (principal); L97.412 Non-pressure chronic ulcer of right heel and midfoot with fat layer exposed ==

== ENCOUNTER → 2019-01-12 | Outpatient (CLI) | payer BC | LOC: HYPER 15:26 | DX: T81.31XD Disruption of external operation (surgical) wound, not elsewhere classified, subsequent encounter (principal); E11.621 Type 2 diabetes mellitus with foot ulcer; L97.412 Non-pressure chronic ulcer of right heel and midfoot with fat layer exposed; S90.821D Blister (nonthermal), right foot, subsequent encounter; L84 Corns and callosities; E11.52 Type 2 diabetes mellitus with diabetic peripheral angiopathy with gangrene; I96 Gangrene, not elsewhere classified; E11.69 Type 2 diabetes mellitus with other specified complication; M86.8X8 Other osteomyelitis, other site; D68.51 Activated protein C resistance; J45.909 Unspecified asthma, uncomplicated; F41.9 Anxiety disorder, unspecified; F32.9 Major depressive disorder, single episode, unspecified; Z79.4 Long term (current) use of insulin; Z79.84 Long term (current) use of oral hypoglycemic drugs; X58.XXXD Exposure to other specified factors, subsequent encounter; Y83.8 Other surgical procedures as the cause of abnormal reaction of the patient, or of later complication, without mention of misadventure at the time of the procedure ==

== ENCOUNTER → 2019-01-26 | Outpatient (CLI) | payer BC | LOC: HYPER 16:36 | DX: T81.49XD Infection following a procedure, other surgical site, subsequent encounter (principal); E11.621 Type 2 diabetes mellitus with foot ulcer; L97.412 Non-pressure chronic ulcer of right heel and midfoot with fat layer exposed; L97.512 Non-pressure chronic ulcer of other part of right foot with fat layer exposed; E11.52 Type 2 diabetes mellitus with diabetic peripheral angiopathy with gangrene; L84 Corns and callosities; E11.69 Type 2 diabetes mellitus with other specified complication; M86.8X7 Other osteomyelitis, ankle and foot; F41.9 Anxiety disorder, unspecified; F32.9 Major depressive disorder, single episode, unspecified; Z79.4 Long term (current) use of insulin; Z79.84 Long term (current) use of oral hypoglycemic drugs; Y83.8 Other surgical procedures as the cause of abnormal reaction of the patient, or of later complication, without mention of misadventure at the time of the procedure ==

== ENCOUNTER → 2019-02-09 | Outpatient (CLI) | payer BC | LOC: HYPER 15:19 | DX: T81.49XD Infection following a procedure, other surgical site, subsequent encounter (principal); E11.621 Type 2 diabetes mellitus with foot ulcer; L97.412 Non-pressure chronic ulcer of right heel and midfoot with fat layer exposed; S90.821D Blister (nonthermal), right foot, subsequent encounter; L84 Corns and callosities; E11.52 Type 2 diabetes mellitus with diabetic peripheral angiopathy with gangrene; E11.69 Type 2 diabetes mellitus with other specified complication; M86.8X8 Other osteomyelitis, other site; D68.51 Activated protein C resistance; J45.909 Unspecified asthma, uncomplicated; F41.9 Anxiety disorder, unspecified; F32.9 Major depressive disorder, single episode, unspecified; Z79.4 Long term (current) use of insulin; Z79.84 Long term (current) use of oral hypoglycemic drugs; X58.XXXD Exposure to other specified factors, subsequent encounter; Y83.8 Other surgical procedures as the cause of abnormal reaction of the patient, or of later complication, without mention of misadventure at the time of the procedure ==

== ENCOUNTER → 2019-02-23 | Outpatient (CLI) | payer BC | LOC: HYPER 09:09 | DX: T81.49XD Infection following a procedure, other surgical site, subsequent encounter (principal); E11.621 Type 2 diabetes mellitus with foot ulcer; L97.416 Non-pressure chronic ulcer of right heel and midfoot with bone involvement without evidence of necrosis; L97.511 Non-pressure chronic ulcer of other part of right foot limited to breakdown of skin; S90.821D Blister (nonthermal), right foot, subsequent encounter; E11.52 Type 2 diabetes mellitus with diabetic peripheral angiopathy with gangrene; I96 Gangrene, not elsewhere classified; E11.69 Type 2 diabetes mellitus with other specified complication; M86.8X8 Other osteomyelitis, other site; L84 Corns and callosities; D68.51 Activated protein C resistance; Z79.4 Long term (current) use of insulin; Z79.84 Long term (current) use of oral hypoglycemic drugs; X58.XXXD Exposure to other specified factors, subsequent encounter; Y83.8 Other surgical procedures as the cause of abnormal reaction of the patient, or of later complication, without mention of misadventure at the time of the procedure ==

== ENCOUNTER → 2019-03-09 | Outpatient (CLI) | payer BC | LOC: HYPER 12:25 | DX: T81.49XD Infection following a procedure, other surgical site, subsequent encounter (principal); E11.621 Type 2 diabetes mellitus with foot ulcer; L97.412 Non-pressure chronic ulcer of right heel and midfoot with fat layer exposed; S90.821D Blister (nonthermal), right foot, subsequent encounter; L84 Corns and callosities; E11.52 Type 2 diabetes mellitus with diabetic peripheral angiopathy with gangrene; I96 Gangrene, not elsewhere classified; E11.69 Type 2 diabetes mellitus with other specified complication; M86.8X8 Other osteomyelitis, other site; D68.51 Activated protein C resistance; F41.9 Anxiety disorder, unspecified; F32.9 Major depressive disorder, single episode, unspecified; Z79.4 Long term (current) use of insulin; Z79.84 Long term (current) use of oral hypoglycemic drugs; X58.XXXD Exposure to other specified factors, subsequent encounter; Y83.8 Other surgical procedures as the cause of abnormal reaction of the patient, or of later complication, without mention of misadventure at the time of the procedure ==

== ENCOUNTER → 2019-03-23 | Outpatient (CLI) | payer BC | LOC: HYPER 14:58 | DX: T87.81 Dehiscence of amputation stump (principal); E11.621 Type 2 diabetes mellitus with foot ulcer; L97.516 Non-pressure chronic ulcer of other part of right foot with bone involvement without evidence of necrosis; L97.412 Non-pressure chronic ulcer of right heel and midfoot with fat layer exposed; E11.52 Type 2 diabetes mellitus with diabetic peripheral angiopathy with gangrene; I96 Gangrene, not elsewhere classified; L84 Corns and callosities; E11.69 Type 2 diabetes mellitus with other specified complication; M86.9 Osteomyelitis, unspecified; F41.9 Anxiety disorder, unspecified; F32.9 Major depressive disorder, single episode, unspecified; Z79.4 Long term (current) use of insulin; Y83.5 Amputation of limb(s) as the cause of abnormal reaction of the patient, or of later complication, without mention of misadventure at the time of the procedure ==

== ENCOUNTER → 2019-04-06 | Outpatient (CLI) | payer BC | LOC: HYPER 11:51 | DX: T87.81 Dehiscence of amputation stump (principal); E11.621 Type 2 diabetes mellitus with foot ulcer; L97.516 Non-pressure chronic ulcer of other part of right foot with bone involvement without evidence of necrosis; L97.412 Non-pressure chronic ulcer of right heel and midfoot with fat layer exposed; E11.52 Type 2 diabetes mellitus with diabetic peripheral angiopathy with gangrene; L84 Corns and callosities; E11.69 Type 2 diabetes mellitus with other specified complication; M86.9 Osteomyelitis, unspecified; J45.909 Unspecified asthma, uncomplicated; F41.9 Anxiety disorder, unspecified; F32.9 Major depressive disorder, single episode, unspecified; Z79.4 Long term (current) use of insulin; Y83.5 Amputation of limb(s) as the cause of abnormal reaction of the patient, or of later complication, without mention of misadventure at the time of the procedure ==

== ENCOUNTER → 2019-04-15 | Outpatient (CLI) | payer BC | LOC: HYPER 09:06 | DX: T87.43 Infection of amputation stump, right lower extremity (principal); E11.621 Type 2 diabetes mellitus with foot ulcer; L97.416 Non-pressure chronic ulcer of right heel and midfoot with bone involvement without evidence of necrosis; L97.512 Non-pressure chronic ulcer of other part of right foot with fat layer exposed; L84 Corns and callosities; E11.69 Type 2 diabetes mellitus with other specified complication; M86.8X8 Other osteomyelitis, other site; E11.52 Type 2 diabetes mellitus with diabetic peripheral angiopathy with gangrene; I96 Gangrene, not elsewhere classified; D68.51 Activated protein C resistance; F41.9 Anxiety disorder, unspecified; F32.9 Major depressive disorder, single episode, unspecified; Z79.4 Long term (current) use of insulin; Z79.84 Long term (current) use of oral hypoglycemic drugs; Y83.5 Amputation of limb(s) as the cause of abnormal reaction of the patient, or of later complication, without mention of misadventure at the time of the procedure ==

== ENCOUNTER → 2019-04-29 | Outpatient (CLI) | payer BC | LOC: HYPER 08:13 | DX: T81.41XD Infection following a procedure, superficial incisional surgical site, subsequent encounter (principal); E11.621 Type 2 diabetes mellitus with foot ulcer; L97.516 Non-pressure chronic ulcer of other part of right foot with bone involvement without evidence of necrosis; L97.412 Non-pressure chronic ulcer of right heel and midfoot with fat layer exposed; E11.52 Type 2 diabetes mellitus with diabetic peripheral angiopathy with gangrene; L84 Corns and callosities; J45.909 Unspecified asthma, uncomplicated; E11.69 Type 2 diabetes mellitus with other specified complication; M86.9 Osteomyelitis, unspecified; F41.9 Anxiety disorder, unspecified; F32.9 Major depressive disorder, single episode, unspecified; Z79.4 Long term (current) use of insulin; Y83.8 Other surgical procedures as the cause of abnormal reaction of the patient, or of later complication, without mention of misadventure at the time of the procedure ==

== ENCOUNTER → 2019-05-13 | Outpatient (CLI) | payer BC | LOC: HYPER 08:26 | DX: T87.89 Other complications of amputation stump (principal); E11.621 Type 2 diabetes mellitus with foot ulcer; L97.416 Non-pressure chronic ulcer of right heel and midfoot with bone involvement without evidence of necrosis; L84 Corns and callosities; E11.69 Type 2 diabetes mellitus with other specified complication; M86.8X7 Other osteomyelitis, ankle and foot; E11.52 Type 2 diabetes mellitus with diabetic peripheral angiopathy with gangrene; I96 Gangrene, not elsewhere classified; D68.51 Activated protein C resistance; F41.9 Anxiety disorder, unspecified; F32.9 Major depressive disorder, single episode, unspecified; Z79.4 Long term (current) use of insulin; Z79.84 Long term (current) use of oral hypoglycemic drugs; Y83.5 Amputation of limb(s) as the cause of abnormal reaction of the patient, or of later complication, without mention of misadventure at the time of the procedure ==

== ENCOUNTER → 2019-05-27 | Outpatient (CLI) | payer OTHER | LOC: HYPER 08:18 | DX: T81.49XD Infection following a procedure, other surgical site, subsequent encounter (principal); E11.621 Type 2 diabetes mellitus with foot ulcer; L97.416 Non-pressure chronic ulcer of right heel and midfoot with bone involvement without evidence of necrosis; L84 Corns and callosities; E11.69 Type 2 diabetes mellitus with other specified complication; M86.8X8 Other osteomyelitis, other site; E11.52 Type 2 diabetes mellitus with diabetic peripheral angiopathy with gangrene; I96 Gangrene, not elsewhere classified; D68.51 Activated protein C resistance; J45.909 Unspecified asthma, uncomplicated; F41.9 Anxiety disorder, unspecified; F32.9 Major depressive disorder, single episode, unspecified; Z79.4 Long term (current) use of insulin; Z79.84 Long term (current) use of oral hypoglycemic drugs; Y83.8 Other surgical procedures as the cause of abnormal reaction of the patient, or of later complication, without mention of misadventure at the time of the procedure ==

== ENCOUNTER → 2019-06-03 | Outpatient (CLI) | payer OTHER | LOC: HYPER 08:34 | DX: T81.49XD Infection following a procedure, other surgical site, subsequent encounter (principal); E11.621 Type 2 diabetes mellitus with foot ulcer; L97.416 Non-pressure chronic ulcer of right heel and midfoot with bone involvement without evidence of necrosis; L97.511 Non-pressure chronic ulcer of other part of right foot limited to breakdown of skin; L84 Corns and callosities; E11.52 Type 2 diabetes mellitus with diabetic peripheral angiopathy with gangrene; I96 Gangrene, not elsewhere classified; D68.51 Activated protein C resistance; E11.69 Type 2 diabetes mellitus with other specified complication; M86.8X8 Other osteomyelitis, other site; J45.909 Unspecified asthma, uncomplicated; F41.9 Anxiety disorder, unspecified; F32.9 Major depressive disorder, single episode, unspecified; Z79.4 Long term (current) use of insulin; Z79.84 Long term (current) use of oral hypoglycemic drugs ==

== ENCOUNTER → 2019-06-17 | Outpatient (CLI) | payer OTHER | LOC: HYPER 08:34 | DX: T81.49XD Infection following a procedure, other surgical site, subsequent encounter (principal); E11.621 Type 2 diabetes mellitus with foot ulcer; L97.416 Non-pressure chronic ulcer of right heel and midfoot with bone involvement without evidence of necrosis; L97.512 Non-pressure chronic ulcer of other part of right foot with fat layer exposed; L84 Corns and callosities; E11.52 Type 2 diabetes mellitus with diabetic peripheral angiopathy with gangrene; I96 Gangrene, not elsewhere classified; E11.69 Type 2 diabetes mellitus with other specified complication; M86.8X8 Other osteomyelitis, other site; D68.51 Activated protein C resistance; F41.9 Anxiety disorder, unspecified; F32.9 Major depressive disorder, single episode, unspecified; Z79.4 Long term (current) use of insulin; Z79.84 Long term (current) use of oral hypoglycemic drugs; Z89.421 Acquired absence of other right toe(s); Y83.8 Other surgical procedures as the cause of abnormal reaction of the patient, or of later complication, without mention of misadventure at the time of the procedure ==

== ENCOUNTER → 2019-07-01 | Outpatient (CLI) | payer OTHER | LOC: HYPER 08:17 | DX: T81.49XD Infection following a procedure, other surgical site, subsequent encounter (principal); E11.621 Type 2 diabetes mellitus with foot ulcer; L97.416 Non-pressure chronic ulcer of right heel and midfoot with bone involvement without evidence of necrosis; L97.511 Non-pressure chronic ulcer of other part of right foot limited to breakdown of skin; L84 Corns and callosities; E11.52 Type 2 diabetes mellitus with diabetic peripheral angiopathy with gangrene; I96 Gangrene, not elsewhere classified; E11.69 Type 2 diabetes mellitus with other specified complication; M86.8X8 Other osteomyelitis, other site; D68.51 Activated protein C resistance; F41.9 Anxiety disorder, unspecified; F32.9 Major depressive disorder, single episode, unspecified; Z79.4 Long term (current) use of insulin; Z79.84 Long term (current) use of oral hypoglycemic drugs; Y83.8 Other surgical procedures as the cause of abnormal reaction of the patient, or of later complication, without mention of misadventure at the time of the procedure ==

== ENCOUNTER → 2019-07-15 | Outpatient (CLI) | payer OTHER | LOC: HYPER 08:35 | DX: T81.49XD Infection following a procedure, other surgical site, subsequent encounter (principal); E11.621 Type 2 diabetes mellitus with foot ulcer; L97.412 Non-pressure chronic ulcer of right heel and midfoot with fat layer exposed; L97.511 Non-pressure chronic ulcer of other part of right foot limited to breakdown of skin; L84 Corns and callosities; E11.52 Type 2 diabetes mellitus with diabetic peripheral angiopathy with gangrene; I96 Gangrene, not elsewhere classified; E11.69 Type 2 diabetes mellitus with other specified complication; M86.8X8 Other osteomyelitis, other site; D68.51 Activated protein C resistance; F41.9 Anxiety disorder, unspecified; F32.9 Major depressive disorder, single episode, unspecified; Z79.4 Long term (current) use of insulin; Z79.84 Long term (current) use of oral hypoglycemic drugs; Y83.8 Other surgical procedures as the cause of abnormal reaction of the patient, or of later complication, without mention of misadventure at the time of the procedure ==

== ENCOUNTER → 2019-07-29 | Outpatient (CLI) | payer OTHER | LOC: HYPER 08:22 | DX: T81.49XD Infection following a procedure, other surgical site, subsequent encounter (principal); E11.621 Type 2 diabetes mellitus with foot ulcer; L97.412 Non-pressure chronic ulcer of right heel and midfoot with fat layer exposed; L97.516 Non-pressure chronic ulcer of other part of right foot with bone involvement without evidence of necrosis; E11.52 Type 2 diabetes mellitus with diabetic peripheral angiopathy with gangrene; I96 Gangrene, not elsewhere classified; E11.69 Type 2 diabetes mellitus with other specified complication; M86.8X8 Other osteomyelitis, other site; F41.9 Anxiety disorder, unspecified; F32.9 Major depressive disorder, single episode, unspecified; Z79.4 Long term (current) use of insulin; Z89.511 Acquired absence of right leg below knee; Y83.8 Other surgical procedures as the cause of abnormal reaction of the patient, or of later complication, without mention of misadventure at the time of the procedure ==

== ENCOUNTER → 2019-08-26 | Outpatient (CLI) | payer OTHER | LOC: HYPER 08:21 | PROVIDERS: ATTEND Emergency Medicine | DX: T81.49XD Infection following a procedure, other surgical site, subsequent encounter (principal); E11.621 Type 2 diabetes mellitus with foot ulcer; L97.416 Non-pressure chronic ulcer of right heel and midfoot with bone involvement without evidence of necrosis; L97.516 Non-pressure chronic ulcer of other part of right foot with bone involvement without evidence of necrosis; L84 Corns and callosities; E11.69 Type 2 diabetes mellitus with other specified complication; M86.8X8 Other osteomyelitis, other site; E11.52 Type 2 diabetes mellitus with diabetic peripheral angiopathy with gangrene; I96 Gangrene, not elsewhere classified; D68.51 Activated protein C resistance; F41.9 Anxiety disorder, unspecified; F32.9 Major depressive disorder, single episode, unspecified; Z79.4 Long term (current) use of insulin; Z79.84 Long term (current) use of oral hypoglycemic drugs; Y83.8 Other surgical procedures as the cause of abnormal reaction of the patient, or of later complication, without mention of misadventure at the time of the procedure ==

== ENCOUNTER → 2019-09-09 | Outpatient (CLI) | payer OTHER | LOC: HYPER 08:09 | PROVIDERS: ATTEND Emergency Medicine | DX: T87.43 Infection of amputation stump, right lower extremity (principal); E11.621 Type 2 diabetes mellitus with foot ulcer; L97.416 Non-pressure chronic ulcer of right heel and midfoot with bone involvement without evidence of necrosis; L84 Corns and callosities; E11.52 Type 2 diabetes mellitus with diabetic peripheral angiopathy with gangrene; I96 Gangrene, not elsewhere classified; E11.69 Type 2 diabetes mellitus with other specified complication; M86.8X8 Other osteomyelitis, other site; D68.51 Activated protein C resistance; F41.9 Anxiety disorder, unspecified; F32.9 Major depressive disorder, single episode, unspecified; Z79.4 Long term (current) use of insulin; Z79.84 Long term (current) use of oral hypoglycemic drugs; Y83.5 Amputation of limb(s) as the cause of abnormal reaction of the patient, or of later complication, without mention of misadventure at the time of the procedure ==

== ENCOUNTER → 2019-09-23 | Outpatient (CLI) | payer OTHER | LOC: HYPER 08:14 | PROVIDERS: ATTEND Emergency Medicine | DX: T81.49XD Infection following a procedure, other surgical site, subsequent encounter (principal); E11.621 Type 2 diabetes mellitus with foot ulcer; L97.416 Non-pressure chronic ulcer of right heel and midfoot with bone involvement without evidence of necrosis; L84 Corns and callosities; E11.52 Type 2 diabetes mellitus with diabetic peripheral angiopathy with gangrene; E11.69 Type 2 diabetes mellitus with other specified complication; M86.8X8 Other osteomyelitis, other site; D68.51 Activated protein C resistance; J45.909 Unspecified asthma, uncomplicated; F41.9 Anxiety disorder, unspecified; F32.9 Major depressive disorder, single episode, unspecified; Z79.4 Long term (current) use of insulin; Z79.84 Long term (current) use of oral hypoglycemic drugs; Z89.421 Acquired absence of other right toe(s); Y83.8 Other surgical procedures as the cause of abnormal reaction of the patient, or of later complication, without mention of misadventure at the time of the procedure ==

== ENCOUNTER → 2019-10-13 | Outpatient (CLI) | payer OTHER | LOC: HYPER 09:32 | PROVIDERS: ATTEND Emergency Medicine | DX: T81.49XD Infection following a procedure, other surgical site, subsequent encounter (principal); E11.621 Type 2 diabetes mellitus with foot ulcer; L97.416 Non-pressure chronic ulcer of right heel and midfoot with bone involvement without evidence of necrosis; L84 Corns and callosities; E11.69 Type 2 diabetes mellitus with other specified complication; M86.8X8 Other osteomyelitis, other site; E11.52 Type 2 diabetes mellitus with diabetic peripheral angiopathy with gangrene; I96 Gangrene, not elsewhere classified; D68.51 Activated protein C resistance; F41.9 Anxiety disorder, unspecified; F32.9 Major depressive disorder, single episode, unspecified; Z79.4 Long term (current) use of insulin; Z79.84 Long term (current) use of oral hypoglycemic drugs; Y83.8 Other surgical procedures as the cause of abnormal reaction of the patient, or of later complication, without mention of misadventure at the time of the procedure ==

== ENCOUNTER → 2019-11-11 | Outpatient (CLI) | payer OTHER | LOC: HYPER 08:25 | PROVIDERS: ATTEND Emergency Medicine | DX: T81.49XD Infection following a procedure, other surgical site, subsequent encounter (principal); E11.621 Type 2 diabetes mellitus with foot ulcer; L97.416 Non-pressure chronic ulcer of right heel and midfoot with bone involvement without evidence of necrosis; L84 Corns and callosities; E11.69 Type 2 diabetes mellitus with other specified complication; M86.8X8 Other osteomyelitis, other site; E11.52 Type 2 diabetes mellitus with diabetic peripheral angiopathy with gangrene; I96 Gangrene, not elsewhere classified; D68.51 Activated protein C resistance; J45.909 Unspecified asthma, uncomplicated; F41.9 Anxiety disorder, unspecified; F32.9 Major depressive disorder, single episode, unspecified; Z79.4 Long term (current) use of insulin; Z79.84 Long term (current) use of oral hypoglycemic drugs ==

== ENCOUNTER → 2019-12-02 | Outpatient (CLI) | payer OTHER | LOC: HYPER 08:25 | PROVIDERS: ATTEND Emergency Medicine | DX: T81.49XD Infection following a procedure, other surgical site, subsequent encounter (principal); E11.621 Type 2 diabetes mellitus with foot ulcer; L97.416 Non-pressure chronic ulcer of right heel and midfoot with bone involvement without evidence of necrosis; L84 Corns and callosities; E11.52 Type 2 diabetes mellitus with diabetic peripheral angiopathy with gangrene; I96 Gangrene, not elsewhere classified; E11.69 Type 2 diabetes mellitus with other specified complication; M86.8X8 Other osteomyelitis, other site; D68.51 Activated protein C resistance; J45.909 Unspecified asthma, uncomplicated; F41.9 Anxiety disorder, unspecified; F32.9 Major depressive disorder, single episode, unspecified; Z79.4 Long term (current) use of insulin; Y83.8 Other surgical procedures as the cause of abnormal reaction of the patient, or of later complication, without mention of misadventure at the time of the procedure ==

== ENCOUNTER → 2019-12-17 | Outpatient (CLI) | payer OTHER | LOC: HYPER 09:10 | PROVIDERS: ATTEND Emergency Medicine | DX: T81.49XD Infection following a procedure, other surgical site, subsequent encounter (principal); E11.621 Type 2 diabetes mellitus with foot ulcer; L97.416 Non-pressure chronic ulcer of right heel and midfoot with bone involvement without evidence of necrosis; L84 Corns and callosities; E11.52 Type 2 diabetes mellitus with diabetic peripheral angiopathy with gangrene; I96 Gangrene, not elsewhere classified; E11.69 Type 2 diabetes mellitus with other specified complication; M86.8X8 Other osteomyelitis, other site; D68.51 Activated protein C resistance; J45.909 Unspecified asthma, uncomplicated; F41.9 Anxiety disorder, unspecified; F32.9 Major depressive disorder, single episode, unspecified; Z79.4 Long term (current) use of insulin; Y83.8 Other surgical procedures as the cause of abnormal reaction of the patient, or of later complication, without mention of misadventure at the time of the procedure ==

== ENCOUNTER → 2019-12-30 | Outpatient (CLI) | payer OTHER | LOC: HYPER 08:23 | PROVIDERS: ATTEND Emergency Medicine | DX: T81.49XD Infection following a procedure, other surgical site, subsequent encounter (principal); E11.621 Type 2 diabetes mellitus with foot ulcer; L97.416 Non-pressure chronic ulcer of right heel and midfoot with bone involvement without evidence of necrosis; L84 Corns and callosities; E11.52 Type 2 diabetes mellitus with diabetic peripheral angiopathy with gangrene; I96 Gangrene, not elsewhere classified; E11.69 Type 2 diabetes mellitus with other specified complication; M86.8X8 Other osteomyelitis, other site; E66.9 Obesity, unspecified; D68.51 Activated protein C resistance; J45.909 Unspecified asthma, uncomplicated; F41.9 Anxiety disorder, unspecified; F32.9 Major depressive disorder, single episode, unspecified; Z79.4 Long term (current) use of insulin; Z68.41 Body mass index [BMI] 40.0-44.9, adult; Y83.8 Other surgical procedures as the cause of abnormal reaction of the patient, or of later complication, without mention of misadventure at the time of the procedure ==

== ENCOUNTER → 2020-01-06 | Outpatient (CLI) | payer OTHER | LOC: HYPER 08:24 | PROVIDERS: ATTEND Emergency Medicine | DX: T81.49XD Infection following a procedure, other surgical site, subsequent encounter (principal); E11.621 Type 2 diabetes mellitus with foot ulcer; L97.416 Non-pressure chronic ulcer of right heel and midfoot with bone involvement without evidence of necrosis; L84 Corns and callosities; E11.52 Type 2 diabetes mellitus with diabetic peripheral angiopathy with gangrene; I96 Gangrene, not elsewhere classified; E11.69 Type 2 diabetes mellitus with other specified complication; M86.8X8 Other osteomyelitis, other site; D68.51 Activated protein C resistance; J45.909 Unspecified asthma, uncomplicated; F41.9 Anxiety disorder, unspecified; F32.9 Major depressive disorder, single episode, unspecified; Z89.421 Acquired absence of other right toe(s); Z79.4 Long term (current) use of insulin; Y83.8 Other surgical procedures as the cause of abnormal reaction of the patient, or of later complication, without mention of misadventure at the time of the procedure ==

== ENCOUNTER → 2020-01-27 | Outpatient (CLI) | payer OTHER | LOC: HYPER 08:15 | PROVIDERS: ATTEND Emergency Medicine | DX: T87.43 Infection of amputation stump, right lower extremity (principal); E11.621 Type 2 diabetes mellitus with foot ulcer; L97.516 Non-pressure chronic ulcer of other part of right foot with bone involvement without evidence of necrosis; L97.412 Non-pressure chronic ulcer of right heel and midfoot with fat layer exposed; E11.52 Type 2 diabetes mellitus with diabetic peripheral angiopathy with gangrene; I96 Gangrene, not elsewhere classified; E11.69 Type 2 diabetes mellitus with other specified complication; M86.9 Osteomyelitis, unspecified; L84 Corns and callosities; F41.9 Anxiety disorder, unspecified; F32.9 Major depressive disorder, single episode, unspecified; Z79.4 Long term (current) use of insulin; Y83.5 Amputation of limb(s) as the cause of abnormal reaction of the patient, or of later complication, without mention of misadventure at the time of the procedure ==

== ENCOUNTER → 2020-02-10 | Outpatient (CLI) | payer OTHER | LOC: HYPER 08:13 | PROVIDERS: ATTEND Emergency Medicine | DX: T81.49XD Infection following a procedure, other surgical site, subsequent encounter (principal); E11.621 Type 2 diabetes mellitus with foot ulcer; L97.416 Non-pressure chronic ulcer of right heel and midfoot with bone involvement without evidence of necrosis; L84 Corns and callosities; E11.52 Type 2 diabetes mellitus with diabetic peripheral angiopathy with gangrene; I96 Gangrene, not elsewhere classified; E11.69 Type 2 diabetes mellitus with other specified complication; M86.8X8 Other osteomyelitis, other site; D68.51 Activated protein C resistance; E66.9 Obesity, unspecified; F41.9 Anxiety disorder, unspecified; F32.9 Major depressive disorder, single episode, unspecified; Z79.4 Long term (current) use of insulin; Z68.41 Body mass index [BMI] 40.0-44.9, adult; Y83.8 Other surgical procedures as the cause of abnormal reaction of the patient, or of later complication, without mention of misadventure at the time of the procedure ==

== ENCOUNTER → 2020-03-02 | Outpatient (CLI) | payer OTHER | LOC: HYPER 08:26 | PROVIDERS: ATTEND Emergency Medicine | DX: T81.49XD Infection following a procedure, other surgical site, subsequent encounter (principal); E11.621 Type 2 diabetes mellitus with foot ulcer; L97.416 Non-pressure chronic ulcer of right heel and midfoot with bone involvement without evidence of necrosis; L84 Corns and callosities; E11.52 Type 2 diabetes mellitus with diabetic peripheral angiopathy with gangrene; I96 Gangrene, not elsewhere classified; E11.69 Type 2 diabetes mellitus with other specified complication; M86.8X8 Other osteomyelitis, other site; D68.51 Activated protein C resistance; E66.9 Obesity, unspecified; J45.909 Unspecified asthma, uncomplicated; F41.9 Anxiety disorder, unspecified; F32.9 Major depressive disorder, single episode, unspecified; Z79.4 Long term (current) use of insulin; Z68.41 Body mass index [BMI] 40.0-44.9, adult; Y83.8 Other surgical procedures as the cause of abnormal reaction of the patient, or of later complication, without mention of misadventure at the time of the procedure ==

== ENCOUNTER → 2020-03-17 | Outpatient (CLI) | payer OTHER | LOC: HYPER 08:23 | PROVIDERS: ATTEND Emergency Medicine | DX: T81.49XD Infection following a procedure, other surgical site, subsequent encounter (principal); E11.621 Type 2 diabetes mellitus with foot ulcer; L97.412 Non-pressure chronic ulcer of right heel and midfoot with fat layer exposed; L84 Corns and callosities; E11.52 Type 2 diabetes mellitus with diabetic peripheral angiopathy with gangrene; I96 Gangrene, not elsewhere classified; E11.69 Type 2 diabetes mellitus with other specified complication; M86.8X8 Other osteomyelitis, other site; D68.51 Activated protein C resistance; E66.9 Obesity, unspecified; J45.909 Unspecified asthma, uncomplicated; F41.9 Anxiety disorder, unspecified; F32.9 Major depressive disorder, single episode, unspecified; Z79.4 Long term (current) use of insulin; Z68.41 Body mass index [BMI] 40.0-44.9, adult; Y83.8 Other surgical procedures as the cause of abnormal reaction of the patient, or of later complication, without mention of misadventure at the time of the procedure ==

== ENCOUNTER → 2020-04-01 | Outpatient (CLI) | payer OTHER | LOC: HYPER 08:03 | PROVIDERS: ATTEND Emergency Medicine | DX: T81.49XD Infection following a procedure, other surgical site, subsequent encounter (principal); E11.621 Type 2 diabetes mellitus with foot ulcer; L97.412 Non-pressure chronic ulcer of right heel and midfoot with fat layer exposed; L84 Corns and callosities; E11.52 Type 2 diabetes mellitus with diabetic peripheral angiopathy with gangrene; I96 Gangrene, not elsewhere classified; E11.69 Type 2 diabetes mellitus with other specified complication; M86.8X8 Other osteomyelitis, other site; D68.51 Activated protein C resistance; E66.9 Obesity, unspecified; J45.909 Unspecified asthma, uncomplicated; F41.9 Anxiety disorder, unspecified; F32.9 Major depressive disorder, single episode, unspecified; Z79.4 Long term (current) use of insulin; Z68.41 Body mass index [BMI] 40.0-44.9, adult; Y83.8 Other surgical procedures as the cause of abnormal reaction of the patient, or of later complication, without mention of misadventure at the time of the procedure ==

== ENCOUNTER → 2020-04-15 | Outpatient (CLI) | payer OTHER | LOC: HYPER 08:08 | PROVIDERS: ATTEND Emergency Medicine Emergency Medical Services | DX: T87.43 Infection of amputation stump, right lower extremity (principal); E11.621 Type 2 diabetes mellitus with foot ulcer; L97.412 Non-pressure chronic ulcer of right heel and midfoot with fat layer exposed; L97.511 Non-pressure chronic ulcer of other part of right foot limited to breakdown of skin; E11.52 Type 2 diabetes mellitus with diabetic peripheral angiopathy with gangrene; I96 Gangrene, not elsewhere classified; E11.69 Type 2 diabetes mellitus with other specified complication; M86.9 Osteomyelitis, unspecified; J45.909 Unspecified asthma, uncomplicated; L84 Corns and callosities; F41.9 Anxiety disorder, unspecified; F32.9 Major depressive disorder, single episode, unspecified; Z79.4 Long term (current) use of insulin; Y83.5 Amputation of limb(s) as the cause of abnormal reaction of the patient, or of later complication, without mention of misadventure at the time of the procedure ==

== ENCOUNTER → 2020-04-29 | Outpatient (CLI) | payer OTHER | LOC: HYPER 08:02 | PROVIDERS: ATTEND Emergency Medicine | DX: T87.43 Infection of amputation stump, right lower extremity (principal); E11.621 Type 2 diabetes mellitus with foot ulcer; L97.412 Non-pressure chronic ulcer of right heel and midfoot with fat layer exposed; E11.52 Type 2 diabetes mellitus with diabetic peripheral angiopathy with gangrene; I96 Gangrene, not elsewhere classified; E11.69 Type 2 diabetes mellitus with other specified complication; M86.9 Osteomyelitis, unspecified; J45.909 Unspecified asthma, uncomplicated; L84 Corns and callosities; F41.9 Anxiety disorder, unspecified; F32.9 Major depressive disorder, single episode, unspecified; E66.9 Obesity, unspecified; Z68.41 Body mass index [BMI] 40.0-44.9, adult; Z79.4 Long term (current) use of insulin; Z79.899 Other long term (current) drug therapy; Y83.5 Amputation of limb(s) as the cause of abnormal reaction of the patient, or of later complication, without mention of misadventure at the time of the procedure ==

== ENCOUNTER → 2020-05-12 | Outpatient (CLI) | payer OTHER | LOC: HYPER 08:08 | PROVIDERS: ATTEND Emergency Medicine | DX: T87.43 Infection of amputation stump, right lower extremity (principal); E11.621 Type 2 diabetes mellitus with foot ulcer; L97.412 Non-pressure chronic ulcer of right heel and midfoot with fat layer exposed; L84 Corns and callosities; D68.51 Activated protein C resistance; E11.52 Type 2 diabetes mellitus with diabetic peripheral angiopathy with gangrene; I96 Gangrene, not elsewhere classified; E11.69 Type 2 diabetes mellitus with other specified complication; M86.9 Osteomyelitis, unspecified; E66.9 Obesity, unspecified; J45.909 Unspecified asthma, uncomplicated; F41.9 Anxiety disorder, unspecified; F32.9 Major depressive disorder, single episode, unspecified; Z68.41 Body mass index [BMI] 40.0-44.9, adult; Z79.4 Long term (current) use of insulin; Z79.899 Other long term (current) drug therapy; Y83.5 Amputation of limb(s) as the cause of abnormal reaction of the patient, or of later complication, without mention of misadventure at the time of the procedure ==

== ENCOUNTER → 2020-05-25 | Outpatient (CLI) | payer OTHER | LOC: HYPER 08:04 | PROVIDERS: ATTEND Emergency Medicine | DX: T87.43 Infection of amputation stump, right lower extremity (principal); E11.621 Type 2 diabetes mellitus with foot ulcer; L97.412 Non-pressure chronic ulcer of right heel and midfoot with fat layer exposed; L84 Corns and callosities; D68.51 Activated protein C resistance; E11.52 Type 2 diabetes mellitus with diabetic peripheral angiopathy with gangrene; I96 Gangrene, not elsewhere classified; E11.69 Type 2 diabetes mellitus with other specified complication; M86.9 Osteomyelitis, unspecified; E66.9 Obesity, unspecified; J45.909 Unspecified asthma, uncomplicated; F41.9 Anxiety disorder, unspecified; F32.9 Major depressive disorder, single episode, unspecified; Z68.41 Body mass index [BMI] 40.0-44.9, adult; Z79.4 Long term (current) use of insulin; Z79.899 Other long term (current) drug therapy; Y83.5 Amputation of limb(s) as the cause of abnormal reaction of the patient, or of later complication, without mention of misadventure at the time of the procedure ==

== ENCOUNTER → 2020-07-07 | Outpatient (CLI) | payer OTHER | LOC: HYPER 07:39 | PROVIDERS: ATTEND Emergency Medicine | DX: T81.49XD Infection following a procedure, other surgical site, subsequent encounter (principal); E11.621 Type 2 diabetes mellitus with foot ulcer; L97.412 Non-pressure chronic ulcer of right heel and midfoot with fat layer exposed; L84 Corns and callosities; D68.51 Activated protein C resistance; E11.52 Type 2 diabetes mellitus with diabetic peripheral angiopathy with gangrene; I96 Gangrene, not elsewhere classified; E11.69 Type 2 diabetes mellitus with other specified complication; M86.9 Osteomyelitis, unspecified; E66.9 Obesity, unspecified; J45.909 Unspecified asthma, uncomplicated; F41.9 Anxiety disorder, unspecified; F32.9 Major depressive disorder, single episode, unspecified; Z68.41 Body mass index [BMI] 40.0-44.9, adult; Z79.4 Long term (current) use of insulin; Y83.8 Other surgical procedures as the cause of abnormal reaction of the patient, or of later complication, without mention of misadventure at the time of the procedure ==

== ENCOUNTER → 2020-07-21 | Outpatient (CLI) | payer OTHER | LOC: HYPER 08:02 | PROVIDERS: ATTEND Emergency Medicine | DX: T81.49XD Infection following a procedure, other surgical site, subsequent encounter (principal); E11.621 Type 2 diabetes mellitus with foot ulcer; L97.412 Non-pressure chronic ulcer of right heel and midfoot with fat layer exposed; L84 Corns and callosities; D68.51 Activated protein C resistance; E11.52 Type 2 diabetes mellitus with diabetic peripheral angiopathy with gangrene; I96 Gangrene, not elsewhere classified; E11.69 Type 2 diabetes mellitus with other specified complication; M86.9 Osteomyelitis, unspecified; E66.9 Obesity, unspecified; J45.909 Unspecified asthma, uncomplicated; F41.9 Anxiety disorder, unspecified; F32.9 Major depressive disorder, single episode, unspecified; Z68.41 Body mass index [BMI] 40.0-44.9, adult; Z79.4 Long term (current) use of insulin; Y83.8 Other surgical procedures as the cause of abnormal reaction of the patient, or of later complication, without mention of misadventure at the time of the procedure ==

== ENCOUNTER 2020-08-03 20:08 | Inpatient (IN) | payer OTHER ==
[~2020-08-03] VITALS: Ht 167.6 cm; Wt 108.6 kg
--- NOTE | ~2020-08-03 | EMS ---
[facility] [address] [place] [address] EMS Patient Care Report Name: DARIO PRO Room #: 170-12 ADM IN M.R.#: [id number] Admission: 08/03/20 Attend Phys: Zachery Hill MD Discharge: Date of : 66 Report #: [id number] THIS REPORT FOR: //name// Report Transmitted: 08/03/2020 21:06 EMS Care Summary [place], [place]/[facility] Incident [id number] @ 08/03/2020 19:17 Incident Location [address] [place] [address] DR COLBERT Patient DARIO PRO Female, 49 Years 1970 Patient Address Patient History Dialysis, Patient Allergies No known allergies, Patient Medications Unknown, Chief Complaint UNRESPONSIVE Disposition Transported [place] Dispatch Reason Cardiac Arrest/ Transported To [facility] Narrative RESPONDED TO CARDIAC ARREST AT DIALYSIS CENTER. UPON ARRIVAL P36 CREW TOOK OVER COMPRESSIONS AND PT MOVED TO FLOOR FROM CHAIR. STAFF REPORT PT FINISHED DIALYSIS AND THEN WENT UNRESPONSIVE SO STAFF STARTED CPR. ONCE PT WAS MOVED TO FLOOR, COMPRESSIONS RESUMED AND AIRWAY WAS ESTABLISHED. CPR PADS AND 3 LEAD OBTAINED. FIRST INITIAL RHYTHM WAS PEA SO COMPRESSIONS RESUMED AND ONCE IO WAS ESTABLISHED EPI WAS GIVEN. FLUIDS WERE ATTACHED AND GLUCOSE TAKEN. AFTER A [facility] [address] [place] [address] EMS Patient Care Report Name: DARIO PRO Room #: 170-12 ADM IN [place].#: [id number] Admission: 08/03/20 Attend Phys: Zachery Hill MD Discharge: Date of : 66 Report #: [id number] TOTAL OF 3 EPI, PT HAD ROSC SO 12 LEAD WAS OBTAINED. 12 LEAD APPEARS NORMAL SINUS RHYTHM. DURING THIS TIME PT WAS ATTEMPTED TO BE INTUBATED MULTIPLE TIMES PRIOR TO BEING TRANSPORTED BUT PT HAS VERY ANTERIOR AIRWAY AND COPIOUS AMOUNTS OF BLOOD IN AIRWAY. IGEL WAS PLACED BACK AND PT WAS SUCTIONED. PT TRANSPORTED TO [facility] AND AT THIS TIME PT CODED SO CPR WAS STARTED BACK UP. PT WAS TEAM LIFTED TO BED AND REPORT GIVEN TO NURSES/DOCTOR. PT CONTINUED TO BE CODED AND EVENTUALLY HOSPITAL STAFF ESTBALISHED ROSC AGAIN. Initial Vitals @19:26P: 42, @19:28P: 38, @19:44P: 44,R: 10,EtCO2: 17, @19:36P: 110,R: 6,EtCO2: 63,SpO2: 25, @19:43P: 47,R: 13,Glucose: 308,EtCO2: 50,SpO2: 64, @19:50P: 45,R: 9,EtCO2: 29, @19:45P: 47,BP: 78/49,EtCO2: 2, @19:35P: 124,R: 10, @19:41P: 79,R: 14,EtCO2: 0,SpO2: 63, @19:33P: 120,R: 36,EtCO2: 0, @19:49P: 44,R: 10,EtCO2: 32, @19:47P: 43,R: 12,EtCO2: 44, @19:32P: 127,R: 8,EtCO2: 39, @19:39P: 83,R: 17,BP: 99/69,EtCO2: 53,SpO2: 62, @19:47P: 44, @19:48P: 44,R: 9,EtCO2: 41, @19:39P: 77,R: 16,SpO2: 61,MO Suspected: false @19:47P: 43,R: 9,EtCO2: 49, @19:30P: 37,R: 12, @19:37P: 74,R: 6,EtCO2: 43,SpO2: 61, @19:32P: 144,R: 6,EtCO2: 0, @19:37P: 95,R: 6,BP: 97/82,EtCO2: 0,SpO2: 24, @19:35P: 126,R: 12,GCS: 3,EtCO2: 15, @19:28P: 40,R: 12,Pain: 0/10,GCS: 3,EtCO2: 0, Assessments @19:23MENTAL:Unresponsive,SKIN:Cyanotic,Pale,HEENT:Eyes: Left Pupil: 4-mm,Eyes: Right Pupil: 4-mm,Head/Face: No Abnormalities,Neck/Airway: No Abnormalities,LUNG SOUNDS:General: No Abnormalities,Left Upper: No Abnormalities,Right Upper: No Abnormalities,Left Lower: No Abnormalities,Right Lower: No Abnormalities,ABDOMEN:General: No Abnormalities,Left Upper: No Abnormalities,Right Upper: No Abnormalities,Left Lower: No Abnormalities,Right Lower: No Abnormalities,PELVIS//GI:No Abnormalities,EXTREMITIES:Left Arm: No Abnormalities,Right Arm: No Abnormalities,Left Leg: No Abnormalities,Right Leg: No Abnormalities,PULSE:Carotid: Absent,NEURO:No Abnormalities,@19:33MENTAL:Unresponsive,SKIN:Pale,Cyanotic,HEENT:Head/Face: No Abnormalities,Eyes: No Abnormalities,Neck/Airway: No Abnormalities,LUNG [facility] [address] [place] [address] EMS Patient Care Report Name: DARIO PRO Room #: 170-12 [facility] IN [facility]#: [id number] Admission: 08/03/20 Attend Phys: Zachery Hill MD Discharge: Date of : 66 Report #: [id number] SOUNDS:General: No Abnormalities,Left Upper: No Abnormalities,Right Upper: No Abnormalities,Left Lower: No Abnormalities,Right Lower: No Abnormalities,ABDOMEN:General: No Abnormalities,Left Upper: No Abnormalities,Right Upper: No Abnormalities,Left Lower: No Abnormalities,Right Lower: No Abnormalities,PELVIS//GI:No Abnormalities,EXTREMITIES:Left Arm: No Abnormalities,Right Arm: No Abnormalities,Left Leg: No Abnormalities,Right Leg: No Abnormalities,PULSE:Carotid: 1+ Thready,NEURO:No Abnormalities, Impression Cardiac arrest Procedures @19:27Normal Saline (.9% NaCl) 5cc (EZ-IO (Yellow 45mm)) Site: UX-Touuq-Ighuc ProximalResponse: UnchangedSucceeded@19:23ALS AssessmentResponse: UnchangedSucceeded@19:32Epinephrine 1:10 - 1 Milligrams (mg) - Intraosseous (IO)Response: Unchanged@19:26Epinephrine 1:10 - 1 Milligrams (mg) - Intravenous (IV)Response: Unchanged@19:23Response: UnchangedSucceeded@19:3912-Lead ECGResponse: UnchangedSucceeded@19:28Epinephrine 1:10 - 1 Milligrams (mg) - Intraosseous (IO)Response: Unchanged@19:41Orotracheal Intubation Complications: Unable To Visualize,Cardiac Arrest,Failed Intubation Effort,Response: UnchangedFailed@19:32Orotracheal Intubation Complications: Unable To Visualize,Cardiac Arrest,Failed Intubation Effort,Response: UnchangedFailed@19:37Orotracheal Intubation Complications: Unable To Visualize,Failed Intubation Effort,Response: UnchangedFailed@19:41Cricoid Pressure Response: Unchanged@19:36Suction Response: UnchangedSucceeded@19:45General CommentsResponse: Unchanged@19:25iGEL Response: UnchangedSucceeded@19:26Oxygen FlowRate: 15 Device: Bag Valve Mask (BVM) Response: UnchangedSucceeded@19:263-Lead ECGResponse: UnchangedSucceeded@19:37Cricoid Pressure Response: Unchanged Timeline 19:15,Call Received 19:15,Dispatch Notified 19:17,Dispatched 19:17,En Route 19:20,On Scene 19:23,At Patient 19:23,ALS Assessment,Response: UnchangedSucceeded, 19:23,Response: UnchangedSucceeded, 19:25,iGEL Response: UnchangedSucceeded, 19:26,Oxygen FlowRate: 15 Device: Bag Valve Mask (BVM) Response: UnchangedSucceeded, 19:26,Epinephrine 1:10 - 1 Milligrams (mg) - Intravenous (IV),Response: Unchanged 19:26,3-Lead ECG,Response: UnchangedSucceeded, 19:26,BP: / M,PULSE: 42,RR: R,SPO2: Ox,ETCO2: ,BG: ,PAIN: ,GCS: , [address] [address] EMS Patient Care Report Name: DARIO PRO Feliz Room #: 170-12 [facility] IN ..#: [id number] Admission: 08/03/20 Attend Phys: Zachery Hill MD Discharge: Date of : 66 Report #: [id number] 19:27,Normal Saline (.9% NaCl) 5cc EZ-IO (Yellow 45mm) Site: AM-Ctoje-Sypai Proximal,Response: UnchangedSucceeded, 19:28,Epinephrine 1:10 - 1 Milligrams (mg) - Intraosseous (IO),Response: Unchanged 19:28,BP: / M,PULSE: 40,RR: 12 R,SPO2: Ox,ETCO2: 0 ,BG: ,PAIN: 0,GCS: 3, 19:28,BP: / M,PULSE: 38,RR: R,SPO2: Ox,ETCO2: ,BG: ,PAIN: ,GCS: , 19:30,BP: / M,PULSE: 37,RR: 12 R,SPO2: Ox,ETCO2: ,BG: ,PAIN: ,GCS: , 19:32,Orotracheal Intubation Complications: Unable To Visualize,Cardiac Arrest,Failed Intubation Effort,,Response: UnchangedFailed, 19:32,Epinephrine 1:10 - 1 Milligrams (mg) - Intraosseous (IO),Response: Unchanged 19:32,BP: / M,PULSE: 127,RR: 8 R,SPO2: Ox,ETCO2: 39 ,BG: ,PAIN: ,GCS: , 19:32,BP: / M,PULSE: 144,RR: 6 R,SPO2: Ox,ETCO2: 0 ,BG: ,PAIN: ,GCS: , 19:33,BP: / M,PULSE: 120,RR: 36 R,SPO2: Ox,ETCO2: 0 ,BG: ,PAIN: ,GCS: , 19:35,BP: / M,PULSE: 126,RR: 12 R,SPO2: Ox,ETCO2: 15 ,BG: ,PAIN: ,GCS: 3, 19:35,BP: / M,PULSE: 124,RR: 10 R,SPO2: Ox,ETCO2: ,BG: ,PAIN: ,GCS: , 19:36,Suction Response: UnchangedSucceeded, 19:36,BP: / M,PULSE: 110,RR: 6 R,SPO2: 25 Ox,ETCO2: 63 ,BG: ,PAIN: ,GCS: , 19:37,Orotracheal Intubation Complications: Unable To Visualize,Failed Intubation Effort,,Response: UnchangedFailed, 19:37,BP: 97/82 M,PULSE: 95,RR: 6 R,SPO2: 24 Ox,ETCO2: 0 ,BG: ,PAIN: ,GCS: , 19:37,Cricoid Pressure Response: Unchanged 19:37,BP: / M,PULSE: 74,RR: 6 R,SPO2: 61 Ox,ETCO2: 43 ,BG: ,PAIN: ,GCS: , 19:39,BP: 99/69 M,PULSE: 83,RR: 17 R,SPO2: 62 Ox,ETCO2: 53 ,BG: ,PAIN: ,GCS: , 19:39,12-Lead ECG,Response: UnchangedSucceeded, 19:39,BP: / M,PULSE: 77,RR: 16 R,SPO2: 61 Ox,ETCO2: ,BG: ,PAIN: ,GCS: , 19:41,Orotracheal Intubation Complications: Unable To Visualize,Cardiac Arrest,Failed Intubation Effort,,Response: UnchangedFailed, 19:41,Cricoid Pressure Response: Unchanged 19:41,BP: / M,PULSE: 79,RR: 14 R,SPO2: 63 Ox,ETCO2: 0 ,BG: ,PAIN: ,GCS: , 19:43,BP: / M,PULSE: 47,RR: 13 R,SPO2: 64 Ox,ETCO2: 50 ,B,PAIN: ,GCS: , 19:44,BP: / M,PULSE: 44,RR: 10 R,SPO2: Ox,ETCO2: 17 ,BG: ,PAIN: ,GCS: , 19:45,General Comments,Response: Unchanged 19:45,Depart Scene 19:45,BP: 78/49 M,PULSE: 47,RR: R,SPO2: Ox,ETCO2: 2 ,BG: ,PAIN: ,GCS: , 19:47,BP: / M,PULSE: 43,RR: 9 R,SPO2: Ox,ETCO2: 49 ,BG: ,PAIN: ,GCS: , 19:47,At Destination 19:47,BP: / M,PULSE: 43,RR: 12 R,SPO2: Ox,ETCO2: 44 ,BG: ,PAIN: ,GCS: , 19:47,BP: / M,PULSE: 44,RR: R,SPO2: Ox,ETCO2: ,BG: ,PAIN: ,GCS: , 19:48,BP: / M,PULSE: 44,RR: 9 R,SPO2: Ox,ETCO2: 41 ,BG: ,PAIN: ,GCS: , 19:49,BP: / M,PULSE: 44,RR: 10 R,SPO2: Ox,ETCO2: 32 ,BG: ,PAIN: ,GCS: , 19:50,BP: / M,PULSE: 45,RR: 9 R,SPO2: Ox,ETCO2: 29 ,BG: ,PAIN: ,GCS: , 20:14,Call Closed Disclaimer v1.1 Copyright 2020 [employer] [place] [address] EMS Patient Care Report Name: DARIO PRO Room #: 170-12 ADM IN [facility]#: [id number] Admission: 08/03/20 Attend Phys: Zachery Hill MD Discharge: Date of : 66 Report #: [id number] This EMS Care Summary contains data elements from the applicable legal record (which may be displayed differently). It is designed to provide pertinent information for the following purposes: continuity of care, clinical quality, and state data reporting. The complete legal record is available to ED staff and administrators of the receiving hospital in [facility]s Patient Tracker. All data is provided "as is."
[2020-08-03 20:24] LABS: HEMATOCRIT 24.2 % (37.0-47.0); HEMOGLOBIN 7.3 gm/dL (12.0-15.0); MCH 31.8 pg (26.0-34.0); MCHC 30.3 g/dL (28.0-37.0); MCV 104.8 fL (80.0-100.0); PLATELET COUNT 162 thou/uL (150-400); RBC 2.31 mil/uL (4.20-5.00); RDW 16.6 % (10.5-14.5); WBC 11.6 thou/uL (4.0-11.0)
[2020-08-03 20:28] LABS: CALCIUM 9.1 mg/dL (8.5-10.1); CREATININE 4.1 mg/dL (0.6-1.0); POTASSIUM 3.9 mmol/L (3.5-5.1)
[2020-08-03 20:30] LABS: URINE BILIRUBIN NEGATIVE (Negative); URINE BLOOD NEGATIVE (Negative); URINE CLARITY CLEAR; URINE COLOR YELLOW; URINE GLUCOSE-RANDOM* NEGATIVE (Negative); URINE KETONES NEGATIVE (Negative); URINE LEUKOCYTES-REFLEX TRACE (Negative); URINE NITRITE-REFLEX NEGATIVE (Negative); URINE PROTEIN (DIPSTICK) NEGATIVE (Negative); URINE UROBILINOGEN 0.2 E.U./dl (0.2-1.0)
[2020-08-03 20:44] LABS: AMP/METHAMP Negative (Negative); BARBITURATES Negative (Negative); BENZODIAZEPINES Negative (Negative); COCAINE Negative (Negative); METHADONE Negative (Negative); OPIATES Negative (Negative); PCP Negative (Negative)
[2020-08-03 20:48] LABS: MAGNESIUM 2.4 mg/dL (1.8-2.4); TROPONIN-I <0.06 ng/mL (<0.06)
[2020-08-03 21:12] LABS: ABSOLUTE NEUTROPHILS 5.1 thou/uL (1.4-8.2); ANISOCYTOSIS 1+; MACROCYTES 1+; METAMYELOCYTES 1 %; POIKILOCYTOSIS 1+
[2020-08-03 21:45] VITALS: BP 111/60
[2020-08-03 22:04] LABS: HCO3 20.9 mmol/L (22.0-26.0); PCO2 54.7 mmHg (35.0-45.0); PO2 335.5 mmHg (80.0-100.0); sO2 99.6 % (92.0-98.0)
[2020-08-03 22:07] LABS: pH 7.199 (7.360-7.450)
[2020-08-03 22:51] LABS: CHOLESTEROL 87 mg/dL (<200); HDL CHOLESTEROL 40 mg/dL (>40); LDL CHOLESTEROL 27 mg/dL (<100); TC:HDL 2.2 Ratio (Not establshd); TRIGLYCERIDE 103 mg/dL (<150); VLDL 21 mg/dL (<40)
[2020-08-03 23:03] LABS: SERUM ASSESSMENT Clear
[2020-08-04] VITALS (11 sets, daily range): BP systolic 80–154; BP diastolic 56–83
[2020-08-04 00:53] LABS: BE(vivo) 1.3 mmol/L (-2 to +3); HCO3 26.9 mmol/L (22.0-26.0); PCO2 47.3 mmHg (35.0-45.0); PO2 100.7 mmHg (80.0-100.0); pH 7.372 (7.360-7.450); sO2 97.4 % (92.0-98.0)
[2020-08-04 01:35] LABS: HEMATOCRIT 26.4 % (37.0-47.0); HEMOGLOBIN 8.5 gm/dL (12.0-15.0); MCH 31.6 pg (26.0-34.0); MCHC 32.1 g/dL (28.0-37.0); RBC 2.68 mil/uL (4.20-5.00); RDW 15.4 % (10.5-14.5); WBC 14.8 thou/uL (4.0-11.0)
[2020-08-04 01:39] LABS: CREATININE 4.2 mg/dL (0.6-1.0); MAGNESIUM 2.2 mg/dL (1.8-2.4); POTASSIUM 4.4 mmol/L (3.5-5.1)
[2020-08-04 01:44] LABS: MCV 98.5 fL (80.0-100.0)
[2020-08-04 01:47] LABS: D-DIMER > 35.20 ug/mLFEU (0.19-0.50); FIBRINOGEN 463 mg/dL (201-437)
--- NOTE | 2020-08-04 07:03 | NUR ---
PT ADMITTED TO ICU 2345 ON 08-03-20, PT CURRENTLY ON HYPOTHERMIC PROTOCOL, PT VENTED, PT STILL NOT RESPONSIVE, HYPOTHERMIC PROTOCOL CONTINUES, PT REPORT AND PT CARE GIVEN TO ONCOMEING RN
[2020-08-04 07:34] LABS: HEMATOCRIT 26.5 % (37.0-47.0); HEMOGLOBIN 8.6 gm/dL (12.0-15.0); MCHC 32.5 g/dL (28.0-37.0); MCV 98.5 fL (80.0-100.0); PLATELET COUNT 146 thou/uL (150-400); RBC 2.69 mil/uL (4.20-5.00); RDW 15.8 % (10.5-14.5); WBC 17.9 thou/uL (4.0-11.0)
[2020-08-04 07:44] LABS: CALCIUM 8.5 mg/dL (8.5-10.1); CREATININE 4.4 mg/dL (0.6-1.0); POTASSIUM 4.3 mmol/L (3.5-5.1)
[2020-08-04 07:46] LABS: TROPONIN-I 3.05 ng/mL (<0.06)
--- NOTE | 2020-08-04 07:48 | NUR ---
RECEIVED ORDERS FOR OT TO EVAL AND TREAT. PER CHART REVIEW, PT. IS ON VENTILATOR, SEDATED, AND UNDER HYPOTHERMIA PROTOCOL. PT. NOT APPROPRIATE AT THIS TIME, WILL CHECK BACK TOMORROW.
--- NOTE | 2020-08-04 07:55 | NUR ---
ORDERS FOR EVAL AND TREAT. Pt CURRENTLY SEDATED, ON VENT AND UNDERGOING HYPOTHERMIA PROTOCOL. WILL PLACE ON HOLD AND AWAIT NEW ORDERS WHEN Pt APPROPRIATE FOR THERAPY
--- NOTE | 2020-08-04 08:09 | HC ---
[facility] [place] [address] [address] CONSULTATION Name: DARIO PRO Room #: 243-P [facility] IN M.R.#: [id number] Admission: 08/03/20 Attend Phys: Ruthann Blevins MD Discharge: Date of : 66 Report #: [id number] THIS REPORT FOR: cc: Madi Murray MD, Harish MD Park, Jin S. MD ~ DOC #: [id number] Andres Hopkins MD DATE OF SERVICE: 08/03/2020 CARDIOLOGY CONSULTATION INDICATION: Out of hospital arrest. HISTORY OF PRESENT ILLNESS: This is a 49-year-old female with a history of diabetes mellitus, hypertension, end-stage renal disease who presents with an out of hospital arrest. After completing her second dialysis, the patient arrested at the dialysis center. ACLS protocol was performed with CPR and epinephrine. She did not have any episodes of the tachycardia or VFib. The patient was intubated en route. Presently, she has a normal sinus rhythm with a stable blood pressure. There is spontaneous movement, currently on sedation. ECG reveals sinus rhythm with ST segment depression in the precordial leads. PAST MEDICAL HISTORY: The history is obtained from the mother as the patient is currently intubated. No cardiac history. History of diabetes mellitus, non-insulin dependent; hypertension; end-stage renal disease. ALLERGIES: None. MEDICATIONS: Please see MAR for full details. SOCIAL HISTORY: Negative for tobacco use, negative for alcohol use. FAMILY HISTORY: Noncontributory. REVIEW OF SYSTEMS: Unobtainable. PHYSICAL EXAMINATION: VITAL SIGNS: Blood pressure is 100/60, heart rate is 88 beats per minute. GENERAL APPEARANCE: This is a well-developed, well-nourished female, presently intubated and sedated. HEENT: Normocephalic and atraumatic. NECK: Supple. LUNGS: Clear to auscultation. CARDIAC: Regular rate and rhythm, S1 and S2 positive. ABDOMEN: Soft, nontender. Bowel sounds positive. [facility] [address] [place] [address] CONSULTATION Name: DARIO PRO Feliz Room #: [address] [place] [address] [place] [facility].#: [id number] Admission: 08/03/20 Attend Phys: Ruthann Blevins MD Discharge: Date of : 66 Report #: [id number] EXTREMITIES: Positive edema. LABORATORY DATA: ECG reveals sinus rhythm with ST depressions in the precordial leads. ASSESSMENT AND PLAN: 1. Out of hospital arrest with ACLS protocol performed. No evidence for ventricular tachycardia or ventricular fibrillation. Presently, stable blood pressure in sinus rhythm. Given her coronary artery disease risk factors and presentation of out of hospital arrest, we will proceed with cardiac catheterization. This was discussed with the patient's mother. 2. End-stage renal disease, as per Nephrology. 3. Hypertension, hold meds at this time. 4. Hypercholesterolemia, statins. Andres Hopkins MD BARON/HARRISON <ELECTRONICALLY SIGNED> By: Andres Hopkins MD 08/04/20808 2038 2353 Andres Hopkins MD /nt
[2020-08-04 08:37] LABS: ABSOLUTE NEUTROPHILS 16.5 thou/uL (1.4-8.2)
--- NOTE | 2020-08-04 08:37 | CATHLAB ---
[facility] [address] [address] INVASIVE PROCEDURE REPORT Name: DARIO PRO Room #: 243-P ADM IN M.R.#: [id number] Admission: 08/03/20 Attend Phys: Ruthann Blevins MD Discharge: Date of : 66 Report #: [id number] THIS REPORT FOR: cc: Madi Murray MD, Harish MD Park, Jin S. MD ~ APPROVED REPORT Study performed: 08/03/2020 21:33:40 Patient Details Patient Status: ED Room #: The patient is a 49 year-old female Event Personnel Andres Hopkins Associate Account Executive, Jyothi Mustafa RTR Monitor, Elvis Srivastava RTR ScrubBlayne Dexter RN RN, Erika Wick RN guide Performed Art Access - R femoral artery* Left Heart Cath w/or w/o Coronaries [id number] [facility] Hemostasis w/ Mynx Indication Abnormal ECG, The patient presented with bxy-ud-kdbwlsyl cardiac arrest, ACLS protocol performed with ROSC. Risk Factors Obesity, Hypercholesterolemia, HypertensionRenal Failure, Diabetes , Dialysis Procedure Narrative The Right Groin^ was infiltrated with 1% Lidocaine subcutaneous anesthesia. A PINNACLE 6FR Sheath #[id number] sheath was inserted into the RFA^. Coronary angiography was performed using coronary diagnostic catheters. The right coronary system was accessed and visualized with a JR4 catheter. The left coronary system was accessed and visualized with a JL4 catheter. The left ventricle was accessed and visualized with a PIGTAIL catheter. Left ventriculogram was performed in 30 degree projection. Closure device was deployed with a Fr MYNXGRIP 6/7F #[id number]. The patient tolerated the procedure well and there were no complications associated with the procedure. There was no hematoma. [facility] [address] [place] [address] INVASIVE PROCEDURE REPORT Name: DARIO PRO Room #: 243-P [facility] IN [facility].#: [id number] Admission: 08/03/20 Attend Phys: Girma David Discharge: Date of : 66 Report #: [id number] Intraoperative Conscious Sedation No sedation used. Fluoro Time: 1.39 minutes Dose: DAP 25346.50 cGycm2 260 mGy Contrast Type and Amount: Visipaque 75 ml Coronary Angiography The patient's coronary anatomy is right dominant. Diagnostic Cath Left Main The left main artery is a large-caliber vessel, patent with no flow-limiting lesions. LAD The LAD is a moderate-sized caliber vessel, traverses the anterior wall and wraps around the apex. There is minimal plaquing noted in the proximal segment. Diagonal 1 There is a small caliber vessel, with no flow-limiting lesions. Diagonal 2 There is a small caliber vessel, with no flow-limiting lesions. Circumflex The left circumflex artery is a moderate-sized caliber vessel, patent with no flow-limiting lesions. OM1 There is a moderate-sized caliber vessel, originates off the distal left circumflex segment with no flow-limiting lesions. Right Coronary The RCA is a moderate-sized caliber vessel, with minimal plaquing in the proximal segment. R PDA This is a small to moderate-sized caliber vessel, with no flow-limiting lesions. RPLV This is a small to moderate-sized caliber vessel, with no flow-limiting lesions. Ramus This is a moderate-sized caliber vessel, traverses the anterolateral wall, patent with no flow-limiting lesions. Left Ventriculography The left ventricle is normal in size with normal contractility. The left ventricular ejection fraction is estimated to be 55-60%. Hemodynamics The aortic pressure is 153/74 mmHg with a mean of 107 mmHg. The left ventricular pressure is 176/4 mmHg with a mean of mmHg. The left ventricular end diastolic pressure is 33 mmHg. Conclusion 1. Angiographically normal coronary arteries with minimal plaquing noted in the LAD and RCA. [facility] [address] [place] [address] INVASIVE PROCEDURE REPORT Name: DARIO PRO Room #: 243-P [facility] IN M.R.#: [id number] Admission: 08/03/20 Attend Phys: Girma David Discharge: Date of : 66 Report #: [id number] 2. There is normal LV systolic function. 3. Recommend guideline directed medical therapy. <ELECTRONICALLY SIGNED> By: Andres Hopkins MD 08/04/20836 6 6 Andres Hopkins MD /INF
[2020-08-04 08:38] LABS: ANISOCYTOSIS SLIGHT
--- NOTE | 2020-08-04 08:45 | NUR ---
AT APPX 0800, DR. BAIRD CALLED TO NOTIFY THIS NURSE THAT HE SPOKE WITH THE PT'S MOTHER AND IT WAS DECIDED TO MAKE THE PT DNR AND WITHDRAW CARE WHEN SHE ARRIVES FOR VISIT. THIS RN WAS ASKED TO NOTIFY THE OTHER PROVIDERS OF THIS DECISION.
--- NOTE | 2020-08-04 09:07 | NUR ---
VASCULAR ACCESS NOTIFIED TO PLACE A CENTRAL LINE POST CARDIAC ARREST. DICUSSED PATIENT STATUS WITH THE LIVER TRIMMER AND THIS PATIENT- POSSIBLE WITHDRAWL OF CARE. CENTRAL LINE IS ON HOLD AT THIS TIME AWAITING DISCUSSION OF STATUS BETWEEN MD AND FAMILY. A 2ND PIV WAS PLACED. WE WILL RETURN TO PLACE A CENTRAL LINE IF NECESSARY
--- NOTE | 2020-08-04 09:09 | 2DMMODE ---
[facility] [place] [address] 2 D/M-MODE ECHOCARDIOGRAM Name: DARIO PRO Room #: 243-P ADM IN M.R.#: [id number] Admission: 08/03/20 Attend Phys: Ruthann Blevins MD Discharge: Date of : 66 Report #: [id number] THIS REPORT FOR: cc: Madi Murray MD, Harish MD Park, Jin S. MD ~ APPROVED REPORT Study performed: 08/04/2020 08:05:49 EXAM: Comprehensive 2D, Doppler, and color-flow Echocardiogram Patient Location: ICU Room #: 243 Status: routine BSA: 2.14 HR: 63 bpm BP: 153/57 mmHg Rhythm: NSR Other Information Study Quality: Fair/No apical windows. Technically limited study due to obesity, patient on vent. Indications Cardiac arrest. Hx: HTN, HLP, DM, ESRD. 2D Dimensions IVSd: 12.00 (7-11mm) LVOT Diam: 20.00 (18-24mm) LVDd: 46.00 mm PWd: 12.00 (7-11mm) Ascending Ao: 29.00 (22-36mm) LVDs: 30.00 (25-40mm) Left Atrium: 39.00 (27-40mm) Aortic Root: 30.07 mm Aortic Valve AoV Peak Gary.: 1.12 m/s AO Peak Gr.: 5.03 mmHg Mitral Valve E/A Ratio: 0.8 MV Decel. Time: 145.67 ms MV E Max Gary.: 0.45 m/s [facility] [address] [place] [address] 2 D/M-MODE ECHOCARDIOGRAM Name: DARIO PRO Room #: 243-P [facility].#: [id number] Admission: 08/03/20 Attend Phys: Girma David Discharge: Date of : 66 Report #: [id number] MV A Gary.: 0.55 m/s MV PHT: 42.24 ms Pulmonary Valve PV Peak Gary.: 0.86 m/s PV Peak Gr.: 2.99 mmHg Tricuspid Valve TR Peak Gary.: 3.27 m/s RAP Estimate: 10.00 mmHg TR Peak Gr.: 43.00 mmHg PA Pressure: 53.00 mmHg Left Ventricle The left ventricle is normal size. Visualized ravi have normal motion. Mild concentric left ventricular hypertrophy. Left ventricular systolic function is normal. LVEF is 60-65%. Mild diastolic dysfunction is present (impaired relaxation pattern). Right Ventricle The right ventricle is normal size. The right ventricular systolic function is normal. Atria Left atrium is mildly dilated. The right atrium size is normal. Aortic Valve The aortic valve is normal in structure. No aortic regurgitation is present. There is no aortic valvular stenosis. Mitral Valve The mitral valve is normal in structure. Trace mitral regurgitation. No evidence of mitral valve stenosis. Tricuspid Valve The tricuspid valve is normal in structure. Mild tricuspid regurgitation. Estimated PAP is 50mmHg. Pulmonic Valve The pulmonary valve is normal in structure. There is no pulmonic valvular regurgitation. Great Vessels The aortic root is normal in size. The ascending aorta is normal in size. IVC is normal in size and collapses <50% with inspiration. [facility] [address] [place] [address] 2 D/M-MODE ECHOCARDIOGRAM Name: DARIO PRO Feliz Room #: [facility].#: [id number] Admission: 08/03/20 Attend Phys: Girma David Discharge: Date of : 66 Report #: [id number] Pericardium There is no pericardial effusion. <Conclusion> The left ventricle is normal size. Mild concentric left ventricular hypertrophy. Left ventricular systolic function is normal. Mild diastolic dysfunction is present (impaired relaxation pattern). The right ventricle is normal size. Left atrium is mildly dilated. The aortic valve is normal in structure. Trace mitral regurgitation. Mild tricuspid regurgitation. Estimated PAP is 50mmHg. <ELECTRONICALLY SIGNED> By: Andres Hopkins MD 08/04/20908 8 0909 Andres Hopkins MD /INF
--- NOTE | 2020-08-04 11:37 | NUR ---
Nutrition: Received wound consult. Pt has been made comfort care. RD deferring eval.
--- NOTE | 2020-08-04 12:11 | NUR ---
FAMILY MEMBERS AT BEDSIDE, PREPARING FOR EXTUBATION.
--- NOTE | 2020-08-04 12:12 | NUR ---
Case opened. Josue's family/mom Lizzy have moved towards possible comfort care. visited with patient mom, brother and sister at bedside. josue on vent. Active listing and support. Cm notified jay that family is ready to pray. will cont following as needed for dc needs.
--- NOTE | 2020-08-04 12:17 | EKG ---
[address] [place] [address] ELECTROCARDIOGRAM REPORT Name: DARIO PRO Room #: 243- ADM IN M.R.#: [id number] Admission: 08/03/20 Attend Phys: Ruthann Blevins MD Discharge: Date of : 66 Report #: [id number] [facility] Test Date: 2020-08-04 Test Time: 10:36:08 Pat Name: DARIO PRO Department: Room: 243 Gender: F [place]: MICHELE : 1970 Requested By: Jody De Souza Order Number: [id number] MD: Dave Brut Measurements Intervals [place] Rate: 66 P: 20 NM: 187 QRS: -7 QRSD: 101 T: 76 QT: 442 QTc: 471 Interpretive Statements Sinus rhythm Low voltage, precordial leads Nonspecific T abnrm, anterolateral leads Baseline wander in lead(s) V6 Compared to ECG 08/03/2020 20:24:39 Low QRS voltage now present First degree AV block no longer present ST (T wave) deviation no longer present Electronically Signed On 08-04-2020 12:17:21 CDT by Dave Burt [email or web address] <ELECTRONICALLY SIGNED> By: Dave Burt MD, FACC 08/04/20 1217 1036 1036 Dave Burt MD, FAC /EPI
--- NOTE | 2020-08-04 12:17 | EKG ---
[address] [place] [address] ELECTROCARDIOGRAM REPORT Name: PRODARIO A Room #: 243- ADM IN M.R.#: [id number] Admission: 08/03/20 Attend Phys: Ruthann Blevins MD Discharge: Date of : 66 Report #: [id number] [facility] ED Test Date: 2020-08-03 Test Time: 20:24:39 Pat Name: DARIO PRO Department: Room: 243 P Gender: F Financial Advocate: DERIAN : 1970 Requested By: Ruthann Blevins Order Number: [id number] MD: Dave Burt Measurements Intervals [place] Rate: 88 P: 9 NH: 234 QRS: 3 QRSD: 110 T: 3 QT: 409 QTc: 495 Interpretive Statements Sinus rhythm Prolonged NH interval Consider left atrial enlargement Minimal ST depression, anterolateral leads Borderline prolonged QT interval No previous ECG available for comparison Electronically Signed On 08-04-2020 12:17:16 CDT by Dave Burt [email or web address] <ELECTRONICALLY SIGNED> By: Dave Burt MD, [facility] 08/04/20 1217 23 23 Dave Burt MD, FAC /EPI
--- NOTE | 2020-08-04 16:35 | NUR ---
AT 1450, PT W/ ASYSTOLE, NO APICAL PULSE, NO SPONTANEOUS RESPIRATIONS, NO B/P. PRONOUNCEMENT MADE BY TWO RN'S AT THE ORDER OF DR. ROSAS. 'Jose NORMAN AND VINICIO NOTIFIED VIA MESSAGE THROUGH ANSWERING SERVICE. FAMILY AT BEDSIDE. REASSURANCES AND EMOTIONAL SUPPORT PROVIDED. PT'S MOTHER, WHO IS NEXT OF KIN, TOOK PT'S BELONGINGS HOME.
--- NOTE | 2020-08-04 16:38 | NUR ---
PT RELEASED TO [facility] VIA STRETCHER BY SECURITY X 2.
[2020-08-05 00:06] LABS: GLYCOHEMOGLOBIN (HGB A1C) 6.6 % (4.8-5.6)
== END 2020-08-04 14:50 | DRG 208 ==
LOC: ER 20:08 → ICU 21:38 → EROBS 21:38 → ICU 23:16
PROVIDERS: Emergency Medicine; Internal Medicine Pulmonary Disease; Nurse Practitioner Family; ADMIT Hospitalist; ATTEND Hospitalist
PROC: 4A023N7 Measurement of Cardiac Sampling and Pressure, Left Heart, Percutaneous Approach (ICD-10-PCS; principal; 2020-08-03)
PROC: B215YZZ Fluoroscopy of Left Heart using Other Contrast (ICD-10-PCS; principal; 2020-08-03)
PROC: 0BH17EZ Insertion of Endotracheal Airway into Trachea, Via Natural or Artificial Opening (ICD-10-PCS; principal; 2020-08-03)
PROC: 5A12012 Performance of Cardiac Output, Single, Manual (ICD-10-PCS; principal; 2020-08-03)
PROC: 5A1935Z Respiratory Ventilation, Less than 24 Consecutive Hours (ICD-10-PCS; principal; 2020-08-03)
PROC: B211YZZ Fluoroscopy of Multiple Coronary Arteries using Other Contrast (ICD-10-PCS; principal; 2020-08-03)
DX: J96.02 Acute respiratory failure with hypercapnia (principal); N18.6 End stage renal disease; I12.0 Hypertensive chronic kidney disease with stage 5 chronic kidney disease or end stage renal disease; G93.1 Anoxic brain damage, not elsewhere classified; J96.01 Acute respiratory failure with hypoxia; I25.10 Atherosclerotic heart disease of native coronary artery without angina pectoris; I46.9 Cardiac arrest, cause unspecified; E78.00 Pure hypercholesterolemia, unspecified; J45.909 Unspecified asthma, uncomplicated; E66.01 Morbid (severe) obesity due to excess calories; E78.5 Hyperlipidemia, unspecified; F32.9 Major depressive disorder, single episode, unspecified; E11.22 Type 2 diabetes mellitus with diabetic chronic kidney disease; E11.65 Type 2 diabetes mellitus with hyperglycemia; D72.829 Elevated white blood cell count, unspecified; E03.9 Hypothyroidism, unspecified; Z51.5 Encounter for palliative care; D63.8 Anemia in other chronic diseases classified elsewhere; Z88.8 Allergy status to other drugs, medicaments and biological substances; Z68.38 Body mass index [BMI] 38.0-38.9, adult; Z90.49 Acquired absence of other specified parts of digestive tract; Z89.431 Acquired absence of right foot; Z79.899 Other long term (current) drug therapy
CPT/HCPCS: 10078